=== PATIENT | female | born 1990 | race Caucasian/White ===

== ENCOUNTER 2017-01-12 17:03 | Emergency (ER) | payer SELFPAY ==
[2017-01-12 18:11] LABS: Basophils % (Auto) 0.9 % (0.0-1.8); Eosinophils % (Auto) 1.2 % (0.0-4.3); Hematocrit 40.2 % (30.3-42.9); Hemoglobin 14.1 gm/dl (10.1-14.3); Mean Corpuscular HGB Conc 35 % (30-34); Mean Corpuscular Hemoglobin 31 pg (28-32); Mean Corpuscular Volume 88 fl (79-97); Platelet Count 222 K/mm3 (140-440); Red Blood Count 4.57 M/mm3 (3.65-5.03); Red Cell Distribution Width 13.4 % (13.2-15.2)
[2017-01-12 18:16] LABS: Alanine Aminotransferase 23 units/L (7-56); Albumin/Globulin Ratio 1.2 %; Alkaline Phosphatase 42 units/L (35-129); Anion Gap 17 mmol/L; Blood Urea Nitrogen 14 mg/dL (7-17); Calcium 8.9 mg/dL (8.4-10.2); Carbon Dioxide 25 mmol/L (22-30); Chloride 102.4 mmol/L (98-107); Glucose 103 mg/dL (65-100); Lipase 67 units/L (13-60); Potassium 4.7 mmol/L (3.6-5.0); Sodium 140 mmol/L (137-145); Total Protein 7.4 g/dL (6.3-8.2)
[2017-01-12] MEDS ORDERED: ZOFRAN IV ONE (18:41)
[2017-01-12] MEDS ORDERED: TORADOL IV ONE (18:41)
[2017-01-12] MEDS ORDERED: NACL 0.9% 1000 ML 1,000 ML IV ONE (18:41)
[2017-01-12 18:44] LABS: Bilirubin,Urine Negative (Negative); Blood,Urine Negative (Negative); Ketones,Urine Negative (Negative); PH,Urine 6.5 (5.0-7.0)
[2017-01-12 18:45] LABS: Leukocyte Esterase,Urine Negative (Negative); Nitrite,Urine Negative (Negative); Protein,Urine <15 mg/dL mg/dL (Negative); Urobilinogen,Urine < 2.0 mg/dL (<2.0)
[2017-01-12] MEDS ORDERED: NACL ONE (19:08)
--- NOTE | 2017-01-12 20:19 | Cat Scan Report ---
FINAL REPORT EXAM: CT ABDOMEN PELVIS W CON HISTORY: RLQ pain TECHNIQUE: Serial axial images through the abdomen and pelvis with coronal and sagittal reconstruction. Intravenous administration of 100 milliliters Omnipaque 300 contrast PRIORS: None. FINDINGS: There is mild atelectasis in the dependent portion the lung bases. No pleural effusion is seen. Gallbladder is decompressed. The spleen measures 13.9 centimeters in AP dimension. No focal hepatic lesion is identified. Pancreas appears normal. Adrenal glands appear normal. Kidneys appear normal. Aorta is normal in caliber. Bladder appears normal. No gross abnormality is seen in the uterus. Surgical clips are noted in the adnexa. No free fluid. Appendix appears normal. No gross bowel abnormality is identified. No acute osseous abnormality is identified. IMPRESSION: 1. Normal-appearing appendix. 2. No free fluid or inflammatory changes are seen in the abdomen or pelvis. 3. Mild splenomegaly.
--- NOTE | 2017-01-12 21:00 | Emergency Department Report ---
Entered by PRINCESS SEBASTIAN, acting as scribe for JAMI PIZANO NP. ED Abdominal Pain HPI - General Chief Complaint: Abdominal Pain Stated Complaint: LOWER ABD PAIN Time Seen by Provider: 01/12/17 18:14 Source: patient Mode of arrival: Ambulatory Limitations: No Limitations - History of Present Illness Initial Comments: 26 y/o female presents to the ED c/o abdominal pain x 2 days. Associated symptoms include nausea and dizziness but she denies fever, chills and vomiting. Pain is described as 10/10 on a severity scale. No alleviating or aggravating factors. NKDA. LMP: 12/31/16. Complaint: abdominal pain Onset/Timin -: days(s) Location: RUQ Radiation: none Migration to: no migration Severity: severe Severity scale (0 -10): 8 Quality: sharp Consistency: constant Improves With: nothing Worsens With: nothing Associated Symptoms: nausea, other (dizziness). denies: vomiting, fever, chills - Related Data LMP Date: 12/31/16 Previous Rx's Medication Instructions Recorded Last Taken Type Dicyclomine [Bentyl] 10 mg PO QID #30 capsule 01/12/17 Unknown Rx Ranitidine HCl [Zantac 150 MG TAB] 150 mg PO BID #60 tablet 01/12/17 Unknown Rx Allergies Allergy/AdvReac Type Severity Reaction Status Date / Time No Known Allergies Allergy Verified 01/12/17 17:28 ED Review of Systems Comment: All other systems reviewed and negative Constitutional: denies: chills, fever Eyes: denies: eye pain, eye discharge, vision change ENT: denies: ear pain, throat pain Respiratory: denies: cough, shortness of breath, wheezing Cardiovascular: denies: chest pain, palpitations Endocrine: no symptoms reported Gastrointestinal: abdominal pain, nausea. denies: vomiting, diarrhea, constipation, hematemesis, melena, hematochezia Genitourinary: denies: urgency, dysuria, frequency, hematuria, discharge, abnormal menses, dyspareunia Musculoskeletal: denies: back pain, joint swelling, arthralgia Skin: denies: rash, lesions Neurological: other (dizziness) Psychiatric: denies: anxiety, depression Hematological/Lymphatic: denies: easy bleeding, easy bruising ED Past Medical Hx - Past Medical History Previous Medical History?: No Hx Hypertension: No Hx Diabetes: No Hx Deep Vein Thrombosis: No Hx Renal Disease: No Hx Sickle Cell Disease: No Hx Seizures: No Hx Asthma: No Hx HIV: No - Surgical History Past Surgical History?: No - Social History Smoking Status: Never Smoker Substance Use Type: None - Medications Home Medications: Home Medications Medication Instructions Recorded Confirmed Last Taken Type Dicyclomine [Bentyl] 10 mg PO QID #30 capsule 01/12/17 Unknown Rx Ranitidine HCl [Zantac 150 MG TAB] 150 mg PO BID #60 tablet 01/12/17 Unknown Rx ED Physical Exam - General Limitations: No Limitations General appearance: alert, in no apparent distress, anxious, obese - Head Head exam: Present: atraumatic, normocephalic, normal inspection - Eye Eye exam: Present: normal appearance, PERRL, EOMI Pupils: Present: normal accommodation - ENT ENT exam: Present: normal exam, normal orophraynx, mucous membranes moist, TM's normal bilaterally, normal external ear exam - Neck Neck exam: Present: normal inspection, full ROM. Absent: tenderness, meningismus, lymphadenopathy, thyromegaly - Respiratory Respiratory exam: Present: normal lung sounds bilaterally. Absent: respiratory distress, wheezes, rales, rhonchi, chest wall tenderness, accessory muscle use, decreased breath sounds - Cardiovascular Cardiovascular Exam: Present: regular rate, normal rhythm, normal heart sounds. Absent: bradycardia, tachycardia, irregular rhythm, systolic murmur, diastolic murmur, rubs, gallop - GI/Abdominal GI/Abdominal exam: Present: soft, tenderness (right upper quadrant, pos hong sign ), normal bowel sounds. Absent: guarding, rebound, rigid, organomegaly, mass, bruit, pulsatile mass, hernia - Rectal Rectal exam: Present: deferred - Extremities Exam Extremities exam: Present: normal inspection, full ROM, normal capillary refill. Absent: tenderness, pedal edema, joint swelling, calf tenderness - Back Exam Back exam: Present: normal inspection, full ROM. Absent: tenderness, CVA tenderness (R), CVA tenderness (L), muscle spasm, paraspinal tenderness, vertebral tenderness, rash noted - Neurological Exam Neurological exam: Present: alert, oriented X3 - Psychiatric Psychiatric exam: Present: normal affect, normal mood - Skin Skin exam: Present: warm, dry, intact, normal color. Absent: rash ED Course Vital Signs 01/12/17 01/12/17 17:29 18:56 Temperature 98.6 F Pulse Rate 69 Respiratory 18 16 Rate O2 Sat by Pulse 100 Oximetry ED Medical Decision Making - Lab Data Result diagrams: 01/12/17 17:42 01/12/17 17:42 Laboratory Tests 01/12/17 01/12/17 01/12/17 17:42 17:42 17:42 WBC 10.0 RBC 4.57 Hgb 14.1 Hct 40.2 MCV 88 MCH 31 MCHC 35 H RDW 13.4 Plt Count 222 Lymph % (Auto) 26.3 [place] % (Auto) 5.1 Eos % (Auto) 1.2 Baso % (Auto) 0.9 Lymph # 2.6 [place] # 0.5 Eos # 0.1 Baso # 0.1 Seg Neutrophils % 66.5 Seg Neutrophils # 6.6 Sodium 140 Potassium 4.7 Chloride 102.4 Carbon Dioxide 25 Anion Gap 17 BUN 14 Creatinine 1.0 Estimated GFR > 60 BUN/Creatinine Ratio 14.00 Glucose 103 H Calcium 8.9 Total Bilirubin 0.70 AST 21 ALT 23 Alkaline Phosphatase 42 Total Protein 7.4 Albumin 4.0 Albumin/Globulin Ratio 1.2 Lipase 67 H HCG, Qual Negative Urine Color Urine Turbidity Urine pH Ur Specific [place] Urine Protein Urine Glucose (UA) Urine Ketones Urine Blood Urine Nitrite Urine Bilirubin Urine Urobilinogen Ur Leukocyte Esterase Urine WBC (Auto) Urine RBC (Auto) 01/12/17 17:57 WBC RBC Hgb Hct MCV MCH MCHC RDW Plt Count Lymph % (Auto) [place] % (Auto) Eos % (Auto) Baso % (Auto) Lymph # [place] # Eos # Baso # Seg Neutrophils % Seg Neutrophils # Sodium Potassium Chloride Carbon Dioxide Anion Gap BUN Creatinine Estimated GFR BUN/Creatinine Ratio Glucose Calcium Total Bilirubin AST ALT Alkaline Phosphatase Total Protein Albumin Albumin/Globulin Ratio Lipase HCG, Qual Urine Color Yellow Urine Turbidity Clear Urine pH 6.5 Ur Specific [place] 1.015 Urine Protein <15 mg/dl Urine Glucose (UA) Negative Urine Ketones Negative Urine Blood Negative Urine Nitrite Negative Urine Bilirubin Negative Urine Urobilinogen < 2.0 Ur Leukocyte Esterase Negative Urine WBC (Auto) 0.0 Urine RBC (Auto) 0.0 - Radiology Data Radiology results: report reviewed no acute findings on ct abd and pelvis - Medical Decision Making pt is a 26 y/o female patient who presents for right upper quadrant pain for 1 week symptoms pressure aching sharp shoot, pt denies vomiting does endorse intermittent nausea, pt is tolerating po intake without n/v labs noted normal, ct abd and pelvis normal plan dc to self with bentyl, zantac, pt will follow up with primary care doctor as directed. ED Disposition Clinical Impression: Abdominal pain Qualifiers: Abdominal location: right upper quadrant Qualified Code(s): R10.11 - Right upper quadrant pain Disposition: DC-01 TO HOME OR SELFCARE Is pt being admited?: No Does the pt Need Aspirin: No Condition: Good Instructions: Abdominal Pain (ED) Additional Instructions: follow up with [facility] [phone] Prescriptions: Dicyclomine [Bentyl] 10 mg PO QID #30 capsule Ranitidine HCl [Zantac 150 MG TAB] 150 mg PO BID #60 tablet Referrals: PRIMARY CARE, [Primary Care Provider] - 3-5 Days Forms: Work/School Release Form(ED) Time of Disposition: 20:58 This documentation as recorded by the JAZ miller ELIZABETH,accurately reflects the service I personally performed and the decisions made by me, JAMI PIZANO NP.
== END 2017-01-12 21:00 | disposition home or self-care (01) ==
LOC: ED 17:03
DX: R10.11 Right upper quadrant pain (principal)
CPT/HCPCS: 36415; 74177; 80053; 81001; 83690; 84703; 85025; 96361; 96374; 96375; 99284; J1885; J2405; J7030; Q9967

== ENCOUNTER 2020-09-17 19:44 | Inpatient (IN) | payer OTHER, SELFPAY ==
[2020-09-17] MEDS ORDERED: SODIUM CHLORIDE 0.9% 1000 ML 1,000 ML IV ONE (20:48)
[2020-09-17] MEDS ORDERED: ACETAMINOPHEN 500 MG TAB PO ONE ×2 (20:48→23:55)
--- NOTE | 2020-09-17 20:51 | Event Note ---
ED Screening Note Date of service: 09/17/20 Time: 20:49 ED Screening Note: 29-year-old female patient presents emergency department with complaints of progressively worsening dyspnea since she was diagnosed with COVID-19 earlier this week. She has been taking Robitussin and aspirin with limited relief. General: Awake, appropriately interactive, no acute distress. Neck: Supple. Full range of motion intact. Cardiovascular: Normal peripheral perfusion. Pulmonary: No respiratory distress. Patient is speaking normally without use of accessory muscles. Skin: No apparent rashes or lesions. Neurological: No facial asymmetry. Speech is clear. Follows commands. Patient is alert and oriented. Musculoskeletal: Moves all four extremities spontaneously with normal range of motion. Psych: Cooperative. Appropriate mood and affect. Patient noted to be febrile and tachycardic on arrival; IV fluids and lactic acid ordered per sepsis protocol. This initial assessment/diagnostic orders/clinical plan/treatment(s) is/are subject to change based on patients health status, clinical progression and re- assessment by fellow clinical providers in the ED. Further treatment and workup at subsequent clinical providers discretion. Patient/guardian urged not to elope from the ED as their condition may be serious if not clinically assessed and managed.
--- NOTE | 2020-09-17 21:06 | XRay Report ---
CHEST 2 VIEWS INDICATION / CLINICAL INFORMATION: SOB; (+) COVID. COMPARISON: None available. FINDINGS: SUPPORT DEVICES: None. HEART / MEDIASTINUM: No significant abnormality. LUNGS / PLEURA: Diffuse bilateral pulmonary opacities No pneumothorax. ADDITIONAL FINDINGS: No significant additional findings. IMPRESSION: 1. Diffuse bilateral pulmonary infiltrates. Signer Name: Martinez Mathur MD Signed: 09/17/2020 9:02 PM Workstation Name: [id number]
[2020-09-17 21:09] LABS: Mean Corpuscular HGB Conc 34 % (30-34); Mean Corpuscular Volume 90 fl (79-97); Platelet Count 174 K/mm3 (140-440); Red Blood Count 4.58 M/mm3 (3.65-5.03); Red Cell Distribution Width 13.6 % (13.2-15.2)
[2020-09-17 21:26] LABS: Alanine Aminotransferase 16 units/L (7-56); Albumin 3.7 g/dL (3.9-5); BUN/Creatinine Ratio 7; Blood Urea Nitrogen 5 mg/dL (7-17); Calcium 8.6 mg/dL (8.4-10.2); Hemolysis Index 21
[2020-09-17 22:39] LABS: Band Neutrophils # (Manual) 0.6 K/mm3; Ovalocytes Rare; Tear Drop Cells Rare; Total Cells Counted 100
[2020-09-17 22:40] LABS: Large Platelets Rare; Platelet Estimate Consistent w Auto
--- NOTE | 2020-09-17 23:32 | Emergency Department Report ---
ED Shortness of Breath HPI - General Chief Complaint: Dyspnea/Respdistress Stated Complaint: CESILIA Time Seen by Provider: 09/17/20 23:12 Source: patient Mode of arrival: Ambulatory Limitations: No Limitations - History of Present Illness Initial Comments: Patient is a 29-year-old female who presents emergency room with complaints of cough, fever, shortness of breath, difficulty breathing, body aches. Patient states her fever is high at home. Patient states she was tested on Sunday for COVID-19. And states that she got her test back this morning is positive. Patient states that her symptoms are worsening. Patient states that her symptoms are better with rest and worse with exertion and movement. Patient states that she has been taking Tylenol for her symptoms and has some relief. Patient denies chest pain. Patient states she has not had a COVID-19 vaccine. Patient states she has not been given any antibiotics lately. MD Complaint: shortness of breath, cough -: Sudden Severity: severe Consistency: constant Improves With: rest Worsens With: exertion Known History Of: other Context: recent URI Associated Symptoms: fever, cough Treatments Prior to Arrival: none - Related Data Home Oxygen Therapy: No Previous Rx's Medication Instructions Recorded Last Taken Type Dicyclomine [Bentyl] 10 mg PO QID #30 capsule 01/12/17 Unknown Rx raNITIdine HCl [Zantac 150 MG TAB] 150 mg PO BID #60 tablet 01/12/17 Unknown Rx Allergies Allergy/AdvReac Type Severity Reaction Status Date / Time No Known Allergies Allergy Verified 01/12/17 17:28 ED Review of Systems ROS: Stated complaint: CESILIA Other details as noted in HPI Constitutional: see HPI, chills, fever, malaise Eyes: denies: eye pain, eye discharge, vision change ENT: as per HPI. denies: ear pain, throat pain Respiratory: see HPI, cough, shortness of breath, SOB with exertion, SOB at rest. denies: wheezing Cardiovascular: denies: chest pain, palpitations Endocrine: no symptoms reported Gastrointestinal: denies: abdominal pain, nausea, diarrhea Genitourinary: denies: urgency, dysuria, discharge Musculoskeletal: denies: back pain, joint swelling, arthralgia Skin: denies: rash, lesions Neurological: denies: headache, weakness, paresthesias Psychiatric: denies: anxiety, depression Hematological/Lymphatic: denies: easy bleeding, easy bruising ED Past Medical Hx - Past Medical History Previous Medical History?: Yes Hx Hypertension: Yes Hx Diabetes: No Hx Deep Vein Thrombosis: No Hx Renal Disease: No Hx Sickle Cell Disease: No Hx Seizures: No Hx Asthma: No Hx HIV: No Additional medical history: Pneumonia - Surgical History Past Surgical History?: Yes Additional Surgical History: X 2 - Family History Family history: no significant - Social History Smoking Status: Never Smoker Substance Use Type: None - Medications Home Medications: Home Medications Medication Instructions Recorded Confirmed Last Taken Type Dicyclomine [Bentyl] 10 mg PO QID #30 capsule 01/12/17 Unknown Rx raNITIdine HCl [Zantac 150 MG TAB] 150 mg PO BID #60 tablet 01/12/17 Unknown Rx ED Physical Exam - General Limitations: No Limitations General appearance: alert, in distress - Head Head exam: Present: atraumatic, normocephalic - Eye Eye exam: Present: normal appearance - ENT ENT exam: Present: mucous membranes dry - Neck Neck exam: Present: normal inspection - Respiratory Respiratory exam: Present: respiratory distress, decreased breath sounds - Cardiovascular Cardiovascular Exam: Present: regular rate, normal rhythm. Absent: systolic murmur, diastolic murmur, rubs, gallop - GI/Abdominal GI/Abdominal exam: Present: soft, normal bowel sounds. Absent: distended, tenderness - Rectal Rectal exam: Present: deferred - Extremities Exam Extremities exam: Present: normal inspection - Back Exam Back exam: Present: normal inspection - Neurological Exam Neurological exam: Present: alert, oriented X3 - Psychiatric Psychiatric exam: Present: normal affect, normal mood - Skin Skin exam: Present: warm, dry, intact, normal color. Absent: rash ED Course Vital Signs 09/17/20 20:27 Temperature 102.9 F H Pulse Rate 114 H Respiratory 18 Rate Blood Pressure 151/96 O2 Sat by Pulse 94 Oximetry - Reevaluation(s) Reevaluation #1: Initial valuation done. Patient found to have a resting oxygen saturation of 84%. Patient's oxygen saturation dropped to 79% with minimal movement. Patient placed on oxygen. Patient placed on 3 L of oxygen via nasal cannula. 09/17/20 23:25 Reevaluation #2: Patient oxygen has improved. Patient on front desk monitor. 09/17/20 23:36 Reevaluation #3: I discussed all results with patient. I discussed plan of care with patient. Patient agrees with plan of care and admission. Patient to be admitted to the hospitalist service. 09/17/20 23:45 - Consultations Consultation #1: Hospitalist consulted for admission. Hospitalist to admit patient. 09/17/20 23:48 ED Medical Decision Making - Lab Data Result diagrams: 09/17/20 20:50 09/17/20 20:50 - Radiology Data Radiology results: report reviewed, image reviewed interpreted by me: Chest x-ray: Bilateral pneumonia. No pneumothorax, no foreign body, no osseous findings, CHEST 2 VIEWS INDICATION / CLINICAL INFORMATION: SOB; (+) COVID. COMPARISON: None available. FINDINGS: SUPPORT DEVICES: None. HEART / MEDIASTINUM: No significant abnormality. LUNGS / PLEURA: Diffuse bilateral pulmonary opacities No pneumothorax. ADDITIONAL FINDINGS: No significant additional findings. IMPRESSION: 1. Diffuse bilateral pulmonary infiltrates. - Medical Decision Making Patient is a 29-year-old female that presents emergency room with complaints of fever, cough, difficulty breathing, shortness of breath, body aches and positive for COVID-19. Patient had a PCR done 5 days ago and got the results back this morning was positive. Patient states her symptoms are worsening. Patient on h is evaluation was found to be severely hypoxic at 84% resting and 79% with activity. Patient was immediately placed on 3 L of oxygen via nasal cannula. Patient had a chest x-ray done which shows bilateral pneumonia. I personally reviewed the chest x-ray. Patient's labs were done and are essentially unremarkable. Patient admitted to the hospital service for further evaluation treatment. Prior to admission, the patient was given Rocephin, Zithromax and Decadron. Critical care time documented due to the multiple reassessments, prolonged time at the bedside, interpretation of diagnostics and labs. - Differential Diagnosis Fever, Covid, URI, pneumonia, hypoxia, respiratory failure Critical Care Time: Yes Critical care time in (mins) excluding proc time.: 35 Critical care attestation.: If time is entered above; I have spent that time in minutes in the direct care of this critically ill patient, excluding procedure time. Critical Care Time: 35 minutes ED Disposition Clinical Impression: Cough, COVID-19, SOB (shortness of breath) Respiratory failure Qualifiers: Chronicity: acute Respiratory failure complication: hypoxia Qualified Code(s): J96.01 - Acute respiratory failure with hypoxia Pneumonia Qualifiers: Pneumonia type: due to unspecified organism Laterality: bilateral Lung location: unspecified part of lung Qualified Code(s): J18.9 - Pneumonia, unspecified organism Disposition: DC-09 OP ADMIT IP TO THIS HOSP Is pt being admited?: Yes Does the pt Need Aspirin: No Condition: Critical Instructions: Bacterial Pneumonia (ED) Time of Disposition: 23:50
[2020-09-17] MEDS ORDERED: cefTRIAXone/NS 2 GM/100 ML 2 GM/100 ML BAG IV ONE (23:33)
[2020-09-17] MEDS ORDERED: dexAMETHasone 4 MG/ML VIAL IV ONE (23:33)
[2020-09-17] MEDS ORDERED: ACETAMINOPHEN 325 MG TAB PO PRN (23:55)
[2020-09-17] MEDS ORDERED: METOCLOPRAMIDE 10 MG/2 ML INJ IV PRN (23:55)
[2020-09-17] MEDS ORDERED: MAGNESIUM HYDROXIDE (MOM) ORAL LIQD UDC PO PRN (23:55)
[2020-09-17] MEDS ORDERED: ONDANSETRON 4 MG/2 ML INJ IV PRN (23:55)
[2020-09-17] MEDS ORDERED: ALUM-MAG HYDROXIDE-SIMETHICONE 200-200-20MG/5ML ORAL LIQD 30 ML PO PRN (23:55)
[2020-09-17] MEDS ORDERED: SENNOSIDES 8.6 MG TAB PO PRN (23:55)
[2020-09-17] MEDS ORDERED: traMADol 50 MG TAB PO PRN (23:59)
[2020-09-17] MEDS ORDERED: traZODone 50 MG TAB PO PRN (23:59)
[2020-09-18] MEDS ORDERED: hydrALAZINE 20 MG/1 ML INJ IV PRN (00:01)
--- NOTE | 2020-09-18 00:06 | History and Physical Report ---
History of Present Illness Date of examination: 08/17/20 Date of admission: 09/17/20 23:38 Chief complaint: Shortness of breath Acute respiratory failure Covid positive History of present illness: Patient is a 29-year-old female who presents emergency room with complaints of cough, fever, shortness of breath, difficulty breathing, body aches. Patient states her fever is high at home. Patient states she was tested on Sunday for COVID-19. And states that she got her test back this morning is positive. Patient states that her symptoms are worsening. Patient states that her symptoms are better with rest and worse with exertion and movement. Patient states that she has been taking Tylenol for her symptoms and has some relief. Patient denies chest pain. Patient states she has not had a COVID-19 vaccine. Patient states she has not been given any antibiotics lately. Ed work up shows WBC 4.7, hemoglobin 14.0, PLT 174, Sodium 136, potassium 4.0, Cr 0.7, LD 521, C reactive Protein 3.50, D-dimer 200.41 Patient seen at bedside in ED. Patient alert and oriented times 3. Patient in an oxygen at 5 liters. Past History Past Medical History: hypertension Past Surgical History: No surgical history Social history: no significant social history Family history: no significant family history Medications and Allergies Allergies Allergy/AdvReac Type Severity Reaction Status Date / Time No Known Allergies Allergy Verified 01/12/17 17:28 Home Medications Medication Instructions Recorded Confirmed Last Taken Type Dicyclomine [Bentyl] 10 mg PO QID #30 capsule 01/12/17 Unknown Rx raNITIdine HCl [Zantac 150 MG TAB] 150 mg PO BID #60 tablet 01/12/17 Unknown Rx Active Meds: Active Medications Acetaminophen (Acetaminophen 325 Mg Tab) 650 mg PO Q4H PRN PRN Reason: Pain MILD(1-3)/Fever >100.5/[place] Al Hydrox/Mg Hydrox/Simethicone (Alum-Mag Hydroxide-Simethicone [phone]/5ml Oral Liqd 30 Ml) 30 ml PO Q4H PRN PRN Reason: Indigestion Enoxaparin Sodium (Enoxaparin 60 Mg/0.6 Ml Inj) 40 mg SUB-Q QDAY SHELLY; Protocol Hydralazine HCl (Hydralazine 20 Mg/1 Ml Inj) 5 mg IV Q4HR PRN PRN Reason: Hypertension Azithromycin (Zithromax/Ns) 500 mg in 250 mls @ 250 mls/hr IV Q24HR SHELLY Sodium Chloride (Nacl 0.9% 1000 Ml) 1,000 mls @ 75 mls/hr IV DIRECT SHELLY Magnesium Hydroxide (Magnesium Hydroxide (Mom) Oral Liqd Udc) 30 ml PO Q4H PRN PRN Reason: Constipation Metoclopramide HCl (Metoclopramide 10 Mg/2 Ml Inj) 10 mg IV Q6H PRN PRN Reason: Nausea And Vomiting Ondansetron HCl (Ondansetron 4 Mg/2 Ml Inj) 4 mg IV Q8H PRN PRN Reason: Nausea And Vomiting Senna (Sennosides 8.6 Mg Tab) 8.6 mg PO Q12HR PRN PRN Reason: Constipation Tramadol HCl (Tramadol 50 Mg Tab) 50 mg PO Q4H PRN PRN Reason: Pain, Moderate (4-6) Trazodone HCl (Trazodone 50 Mg Tab) 50 mg PO QHS PRN PRN Reason: Insomnia Review of Systems Constitutional: fatigue, weakness, malaise Ears, nose, mouth and throat: no epistaxis Breasts: no pain Respiratory: no congestion Gastrointestinal: no abdominal pain, no melena Rectal: no pain Musculoskeletal: no neck stiffness Integumentary: no rash, no pruritis Neurological: weakness, no paralysis Psychiatric: no disorientation, no hallucinations Hematologic/Lymphatic: no easy bruising, no easy bleeding Allergic/Immunologic: no urticaria Exam - Constitutional Vitals: Temp Pulse Resp BP Pulse Ox 102.9 F H 114 H 18 151/96 94 09/17/20 20:27 09/17/20 20:27 09/17/20 20:27 09/17/20 20:27 09/17/20 20:27 General appearance: Present: mild distress, obese - EENT Eyes: Present: PERRL ENT: hearing intact, clear oral mucosa - Neck Neck: Present: supple, normal ROM - Respiratory Respiratory effort: normal Respiratory: bilateral: CTA - Cardiovascular Heart rate: 114 Heart Sounds: Present: S1 & S2. Absent: rub, click - Extremities Extremities: pulses symmetrical, No edema Peripheral Pulses: within normal limits - Abdominal General gastrointestinal: Present: soft, non-tender, non-distended, normal bowel sounds Female genitourinary: Present: normal - Integumentary Integumentary: Present: clear, warm, dry - Musculoskeletal Musculoskeletal: gait normal, strength equal bilaterally - Psychiatric Psychiatric: appropriate mood/affect, intact judgment & insight, cooperative - Neurologic Neurologic: CNII-XII intact, moves all extremities - Allied Health Allied health notes reviewed: nursing Results - Labs CBC & Chem 7: 09/17/20 20:50 09/18/20 00:41 Labs: Abnormal lab results 09/17/20 Range/Units 20:50 Sodium 136 L (137-145) mmol/L BUN 5 L (7-17) mg/dL Albumin 3.7 L (3.9-5) g/dL Assessment and Plan - Patient Problems (1) COVID-19 Current Visit: Yes Status: Acute Plan to address problem: Monitor inflammatory markers Oxygen supplement and systemic steroid ID consulted. We will start the antibiotic with azithromycin Encourage prone position and use of I-S Monitor ABG (2) Respiratory failure Current Visit: Yes Status: Acute Qualifiers: Chronicity: acute Respiratory failure complication: hypoxia Qualified Code(s): J96.01 - Acute respiratory failure with hypoxia Plan to address problem: Acute respiratory failure with hypoxia Patient is on oxygen per nasal cannula I will monitor ABG Patient is started on antibiotic (3) Pneumonia Current Visit: Yes Status: Acute Qualifiers: Pneumonia type: due to unspecified organism Laterality: bilateral Lung location: unspecified part of lung Qualified Code(s): J18.9 - Pneumonia, unspecified organism Plan to address problem: Checks x-ray shows bilateral lung infiltrate. Likely secondary to Covid virus Patient is on antibiotic Blood culture follow-up with results (4) Fever Current Visit: Yes Status: Acute Plan to address problem: Monitor vital signs Fever likely secondary to Covid infection Tylenol for fever (5) DVT prophylaxis Current Visit: Yes Status: Acute Plan to address problem: Subcutaneous Lovenox
[2020-09-18] MEDS: AZITHROMYCIN/NS 500 MG/250 ML 500 MG/250 ML BAG IV SCH ×2 (00:48→09:54)
[2020-09-18] MEDS: SODIUM CHLORIDE 0.9% 1000 ML 1,000 ML IV SCH ×2 (01:35→15:00)
[2020-09-18 02:30] LABS: C-Reactive Protein 3.5 mg/dL (0.00-1.30)
[2020-09-18] MEDS: cefTRIAXone/NS 1 GM/50 ML 1 GM/50 ML BAG IV SCH (06:18)
--- NOTE | 2020-09-18 07:31 | Progress Note ---
Assessment and Plan Assessment and plan: Patient is a 29-year-old female who presents emergency room with complaints of cough, fever, shortness of breath, difficulty breathing, body aches. Patient states her fever is high at home. Patient states she was tested on Sunday for COVID-19. And states that she got her test back this morning is positive. Patient states that her symptoms are worsening. Patient states that her symptoms are better with rest and worse with exertion and movement. Patient states that she has been taking Tylenol for her symptoms and has some relief. Patient denies chest pain. Patient states she has not had a COVID-19 vaccine. Patient states she has not been given any antibiotics lately. Ed work up shows WBC 4.7, hemoglobin 14.0, PLT 174, Sodium 136, potassium 4.0, Cr 0.7, LD 521, C reactive Protein 3.50, D-dimer 200.41 Patient seen at bedside in ED. Patient alert and oriented times 3. Patient in an oxygen at 5 liters. IMPRESSION: 1. Diffuse bilateral pulmonary infiltrates. 4/3: Check Oxygen level. Obtain Pulmonary eval as patient admitted on 5 LITERS of Oxygen. Cough medication added. Encourage prone positioning. 50 minutes counseling provided to the patient on weight loss. (1) COVID-19 Current Visit: Yes Status: Acute Plan to address problem: Monitor inflammatory markers Oxygen supplement and systemic steroid ID consulted. We will start the antibiotic with azithromycin Encourage prone position and use of I-S Monitor ABG (2) Respiratory failure Current Visit: Yes Status: Acute Qualifiers: Chronicity: acute Respiratory failure complication: hypoxia Qualified Code(s): J96.01 - Acute respiratory failure with hypoxia Plan to address problem: Acute respiratory failure with hypoxia Patient is on oxygen per nasal cannula I will monitor ABG Patient is started on antibiotic (3) Pneumonia Current Visit: Yes Status: Acute Qualifiers: Pneumonia type: due to unspecified organism Laterality: bilateral Lung location: unspecified part of lung Qualified Code(s): J18.9 - Pneumonia, unspecified organism Plan to address problem: Checks x-ray shows bilateral lung infiltrate. Likely secondary to Covid virus Patient is on antibiotic Blood culture follow-up with results (4) Fever Current Visit: Yes Status: Acute Plan to address problem: Monitor vital signs Fever likely secondary to Covid infection Tylenol for fever (5) morbid obesity BMI of 40.7 [6] DVT prophylaxis Current Visit: Yes Status: Acute Plan to address problem: Subcutaneous Lovenox History Interval history: Patient seen and examined still with mild shortness of breath. Reports cough but no chest pain. Currently on 4 L of oxygen Hospitalist Physical - Physical exam Narrative exam: VITAL SIGNS: Reviewed. GENERAL: The patient appears normally developed, mild distress, morbidly obese vital signs as documented. HEAD: No signs of head trauma. EYES: Pupils are equal. Extraocular motions intact. EARS: Hearing grossly intact. MOUTH: Oropharynx is normal. NECK: No adenopathy, no JVD. CHEST: Chest with diminished breath sounds bilaterally. No wheezes, rales, or rhonchi. CARDIAC: Regular rate and rhythm. S1 and S2, without murmurs, gallops, or rubs. VASCULAR: No Edema. Peripheral pulses normal and equal in all extremities. ABDOMEN: Soft, non tender and non distended. No rebound or guarding, and no masses palpated. Bowel Sounds normal. MUSCULOSKELETAL: Good range of motion of all major joints. Extremities without clubbing, cyanosis or edema. NEUROLOGIC EXAM: Alert and oriented x 3 No focal sensory or strength deficits. Speech normal. Follows commands. PSYCHIATRIC: Mood normal. SKIN: detail exam as documented in skin assessment - Constitutional Vitals: Temp Pulse Resp BP Pulse Ox 98.5 F 81 18 109/73 97 09/18/20 05:02 09/18/20 05:02 09/18/20 05:02 09/18/20 05:02 09/18/20 05:02 General appearance: Present: mild distress, obese Results - Labs CBC & Chem 7: 09/17/20 20:50 09/18/20 00:41 Labs: Laboratory Last Values WBC 4.7 K/mm3 (4.5-11.0) 09/17/20 20:50 RBC 4.58 M/mm3 (3.65-5.03) 09/17/20 20:50 Hgb 14.0 gm/dl (10.1-14.3) 09/17/20 20:50 Hct 41.0 % (30.3-42.9) 09/17/20 20:50 MCV 90 fl (79-97) 09/17/20 20:50 MCH 31 pg (28-32) 09/17/20 20:50 MCHC 34 % (30-34) 09/17/20 20:50 RDW 13.6 % (13.2-15.2) 09/17/20 20:50 Plt Count 174 K/mm3 (140-440) 09/17/20 20:50 Add Manual Diff Complete 09/17/20 20:50 Total Counted 100 09/17/20 20:50 Seg Neuts % (Manual) 51.0 % (40.0-70.0) 09/17/20 20:50 Band Neutrophils % 12.0 % 09/17/20 20:50 Lymphocytes % (Manual) 32.0 % (13.4-35.0) 09/17/20 20:50 Monocytes % (Manual) 4.0 % (0.0-7.3) 09/17/20 20:50 Basophils % (Manual) 1.0 % (0.0-1.8) 09/17/20 20:50 Nucleated RBC % Not Reportable 09/17/20 20:50 Seg Neutrophils # Man 2.4 K/mm3 (1.8-7.7) 09/17/20 20:50 Band Neutrophils # 0.6 K/mm3 09/17/20 20:50 Lymphocytes # (Manual) 1.5 K/mm3 (1.2-5.4) 09/17/20 20:50 Abs React Lymphs (Man) 0.0 K/mm3 09/17/20 20:50 Monocytes # (Manual) 0.2 K/mm3 (0.0-0.8) 09/17/20 20:50 Eosinophils # (Manual) 0.0 K/mm3 (0.0-0.4) 09/17/20 20:50 Basophils # (Manual) 0.0 K/mm3 (0.0-0.1) 09/17/20 20:50 Metamyelocytes # 0.0 K/mm3 09/17/20 20:50 Myelocytes # 0.0 K/mm3 09/17/20 20:50 Promyelocytes # 0.0 K/mm3 09/17/20 20:50 Blast Cells # 0.0 K/mm3 09/17/20 20:50 WBC Morphology Not Reportable 09/17/20 20:50 Hypersegmented Neuts Not Reportable 09/17/20 20:50 Hyposegmented Neuts Not Reportable 09/17/20 20:50 Hypogranular Neuts Not Reportable 09/17/20 20:50 Smudge Cells Not Reportable 09/17/20 20:50 Toxic Granulation Not Reportable 09/17/20 20:50 Toxic Vacuolation Not Reportable 09/17/20 20:50 Dohle Bodies Not Reportable 09/17/20 20:50 Pelger-Huet Anomaly Not Reportable 09/17/20 20:50 Reed Rods Not Reportable 09/17/20 20:50 Platelet Estimate Consistent w auto 09/17/20 20:50 Clumped Platelets Not Reportable 09/17/20 20:50 Plt Clumps, EDTA Not Reportable 09/17/20 20:50 Large Platelets Rare 09/17/20 20:50 Giant Platelets Not Reportable 09/17/20 20:50 Platelet Satelliting Not Reportable 09/17/20 20:50 Plt Morphology Comment Not Reportable 09/17/20 20:50 RBC Morphology Not Reportable 09/17/20 20:50 Dimorphic RBCs Not Reportable 09/17/20 20:50 Polychromasia Not Reportable 09/17/20 20:50 Hypochromasia Not Reportable 09/17/20 20:50 Poikilocytosis Not Reportable 09/17/20 20:50 Anisocytosis Not Reportable 09/17/20 20:50 Microcytosis Not Reportable 09/17/20 20:50 Macrocytosis Not Reportable 09/17/20 20:50 Spherocytes Not Reportable 09/17/20 20:50 Pappenheimer Bodies Not Reportable 09/17/20 20:50 Sickle Cells Not Reportable 09/17/20 20:50 Target Cells Not Reportable 09/17/20 20:50 Tear Drop Cells Rare 09/17/20 20:50 Ovalocytes Rare 09/17/20 20:50 Helmet Cells Not Reportable 09/17/20 20:50 [place] Bodies Not Reportable 09/17/20 20:50 Hodges Rings Not Reportable 09/17/20 20:50 Magdiel Cells Not Reportable 09/17/20 20:50 Bite Cells Not Reportable 09/17/20 20:50 Crenated Cell Not Reportable 09/17/20 20:50 Elliptocytes Not Reportable 09/17/20 20:50 Acanthocytes (Spur) Not Reportable 09/17/20 20:50 Rouleaux Not Reportable 09/17/20 20:50 Hemoglobin C Crystals Not Reportable 09/17/20 20:50 Schistocytes Not Reportable 09/17/20 20:50 Malaria parasites Not Reportable 09/17/20 20:50 Waylon Bodies Not Reportable 09/17/20 20:50 Hem Pathologist Commnt No 09/17/20 20:50 D-Dimer 200.41 ng/mlDDU (0-234) 09/18/20 00:41 Sodium 136 mmol/L (137-145) L 09/17/20 20:50 Potassium 4.0 mmol/L (3.6-5.0) 09/17/20 20:50 Chloride 99.9 mmol/L (98-107) 09/17/20 20:50 Carbon Dioxide 25 mmol/L (22-30) 09/17/20 20:50 Anion Gap 15 mmol/L 09/17/20 20:50 BUN 5 mg/dL (7-17) L 09/17/20 20:50 Creatinine 0.7 mg/dL (0.6-1.2) 09/17/20 20:50 Estimated GFR > 60 ml/min 09/17/20 20:50 BUN/Creatinine Ratio 7 % 09/17/20 20:50 Glucose 85 mg/dL (65-100) 09/18/20 00:41 Hemoglobin A1c 5.3 % (4-6) 09/18/20 05:53 Lactic Acid 0.70 mmol/L (0.7-2.0) 09/18/20 00:41 Calcium 8.6 mg/dL (8.4-10.2) 09/17/20 20:50 Magnesium 2.10 mg/dL (1.7-2.3) 09/17/20 20:50 Ferritin 116.0 ng/mL (10.0-200.0) 09/18/20 00:41 Total Bilirubin 0.60 mg/dL (0.1-1.2) 09/17/20 20:50 AST 28 units/L (5-40) 09/17/20 20:50 ALT 16 units/L (7-56) 09/17/20 20:50 Alkaline Phosphatase 40 units/L (35-129) 09/17/20 20:50 Lactate Dehydrogenase 521 units/L (91-180) H 09/18/20 00:41 C-Reactive Protein 3.50 mg/dL (0.00-1.30) H 09/18/20 00:41 Total Protein 7.3 g/dL (6.3-8.2) 09/17/20 20:50 Albumin 3.7 g/dL (3.9-5) L 09/17/20 20:50 Albumin/Globulin Ratio 1.0 % 09/17/20 20:50 Microbiology: Microbiology 09/18/20 00:41 Peripheral/Venous Blood Culture - Preliminary Culture in Progress 09/18/20 00:27 Peripheral/Venous Blood Culture - Preliminary Culture in Progress García/IV: Voiding Method Toilet Active Medications - Current Medications Current Medications: Generic Name Dose Route Start Last Admin Trade Name Freq PRN Reason Stop Dose Admin Acetaminophen 650 mg 09/17/20 23:55 Acetaminophen 325 Mg Tab PO Q4H PRN Pain MILD(1-3)/Fever >100.5/[place] Al Hydrox/Mg Hydrox/Simethicone 30 ml 09/17/20 23:55 Alum-Mag Hydroxide-Simethicone 200-451-07iy/5ml Oral Liqd 30 Ml PO Q4H PRN Indigestion Dexamethasone 6 mg 09/18/20 10:00 Dexamethasone 4 Mg Tab PO DAILY SHELLY Enoxaparin Sodium 40 mg 09/18/20 10:00 Enoxaparin 40 Mg/0.4 Ml Inj SUB-Q QDAY SHELLY Protocol Hydralazine HCl 5 mg 09/18/20 00:01 Hydralazine 20 Mg/1 Ml Inj IV Q4H PRN Hypertension Azithromycin 500 mg in 250 mls @ 250 mls/hr 09/17/20 23:45 09/18/20 00:48 Zithromax/Ns IV 250 mls/hr Q24HR SHELLY Administration Sodium Chloride 1,000 mls @ 75 mls/hr 09/17/20 23:45 09/18/20 01:35 Nacl 0.9% 1000 Ml IV 75 mls/hr DIRECT SHELLY Administration Ceftriaxone Sodium 1 gm in 50 mls @ 100 mls/hr 09/18/20 06:00 09/18/20 06:18 Rocephin/Ns 1 Gm/50 Ml IV 100 mls/hr Q24H SHELLY Administration Protocol Magnesium Hydroxide 30 ml 09/17/20 23:55 Magnesium Hydroxide (Mom) Oral Liqd Udc PO Q4H PRN Constipation Metoclopramide HCl 10 mg 09/17/20 23:55 Metoclopramide 10 Mg/2 Ml Inj IV Q6H PRN Nausea And Vomiting Ondansetron HCl 4 mg 09/17/20 23:55 Ondansetron 4 Mg/2 Ml Inj IV Q8H PRN Nausea And Vomiting Senna 8.6 mg 09/17/20 23:55 Sennosides 8.6 Mg Tab PO Q12HR PRN Constipation Tramadol HCl 50 mg 09/17/20 23:59 Tramadol 50 Mg Tab PO Q4H PRN Pain, Moderate (4-6) Trazodone HCl 50 mg 09/17/20 23:59 Trazodone 50 Mg Tab PO QHS PRN Insomnia
[2020-09-18] MEDS: ENOXAPARIN 40 MG/0.4 ML INJ SUB-Q SCH (09:54)
[2020-09-18] MEDS ORDERED: DEXAMETHASONE 4 MG TAB PO SCH (10:00)
--- NOTE | 2020-09-18 12:14 | Consultation ---
History of Present Illness Consult date: 09/18/20 Reason for consult: dyspnea, cough History of present illness: Patient is a 29-year-old female who presents emergency room with complaints of cough, fever, shortness of breath, difficulty breathing, body aches. Patient states her fever is high at home. Patient states she was tested on Sunday for COVID-19. And states that she got her test back this morning is positive. Patient states that her symptoms are worsening. Patient states that her symptoms are better with rest and worse with exertion and movement. Patient states that she has been taking Tylenol for her symptoms and has some relief. Patient denies chest pain. Patient states she has not had a COVID-19 vaccine. Patient states she has not been given any antibiotics lately. Pt denied any previous respiratory disorder. Pt is a non smoker drinks occasional beer. Past History Past Medical History: hypertension Past Surgical History: No surgical history Social history: no significant social history Family history: no significant family history Medications and Allergies Allergies Allergy/AdvReac Type Severity Reaction Status Date / Time No Known Allergies Allergy Verified 01/12/17 17:28 Home Medications Medication Instructions Recorded Confirmed Last Taken Type Dicyclomine [Bentyl] 10 mg PO QID #30 capsule 01/12/17 Unknown Rx raNITIdine HCl [Zantac 150 MG TAB] 150 mg PO BID #60 tablet 01/12/17 Unknown Rx Active Meds: Active Medications Acetaminophen (Acetaminophen 325 Mg Tab) 650 mg PO Q4H PRN PRN Reason: Pain MILD(1-3)/Fever >100.5/[place] Al Hydrox/Mg Hydrox/Simethicone (Alum-Mag Hydroxide-Simethicone 208-219-44qi/5ml Oral Liqd 30 Ml) 30 ml PO Q4H PRN PRN Reason: Indigestion Dexamethasone (Dexamethasone 4 Mg Tab) 6 mg PO DAILY [facility] Last Admin: 09/18/20 09:54 Dose: 6 mg Documented by: Enoxaparin Sodium (Enoxaparin 40 Mg/0.4 Ml Inj) 40 mg SUB-Q QDAY [facility]; Protocol Last Admin: 09/18/20 09:54 Dose: 40 mg Documented by: Guaifenesin (Guaifenesin Dm 200/20 Mg Oral Liqd 10 Ml) 20 ml PO Q4H PRN PRN Reason: Cough Hydralazine HCl (Hydralazine 20 Mg/1 Ml Inj) 5 mg IV Q4H PRN PRN Reason: Hypertension Azithromycin (Zithromax/Ns) 500 mg in 250 mls @ 250 mls/hr IV Q24HR SHELLY Last Admin: 09/18/20 09:54 Dose: 250 mls/hr Documented by: Sodium Chloride (Nacl 0.9% 1000 Ml) 1,000 mls @ 75 mls/hr IV DIRECT SHELLY Last Admin: 09/18/20 01:35 Dose: 75 mls/hr Documented by: Ceftriaxone Sodium (Rocephin/Ns 1 Gm/50 Ml) 1 gm in 50 mls @ 100 mls/hr IV Q24H SHELLY; Protocol Last Admin: 09/18/20 06:18 Dose: 100 mls/hr Documented by: Magnesium Hydroxide (Magnesium Hydroxide (Mom) Oral Liqd Udc) 30 ml PO Q4H PRN PRN Reason: Constipation Metoclopramide HCl (Metoclopramide 10 Mg/2 Ml Inj) 10 mg IV Q6H PRN PRN Reason: Nausea And Vomiting Ondansetron HCl (Ondansetron 4 Mg/2 Ml Inj) 4 mg IV Q8H PRN PRN Reason: Nausea And Vomiting Senna (Sennosides 8.6 Mg Tab) 8.6 mg PO Q12HR PRN PRN Reason: Constipation Tramadol HCl (Tramadol 50 Mg Tab) 50 mg PO Q4H PRN PRN Reason: Pain, Moderate (4-6) Trazodone HCl (Trazodone 50 Mg Tab) 50 mg PO QHS PRN PRN Reason: Insomnia Review of Systems Constitutional: weight gain, fever, fatigue Respiratory: cough, shortness of breath Physical Examination Vital signs: Vital Signs Temp Pulse Resp BP Pulse Ox 102.9 F H 114 H 18 151/96 94 09/17/20 20:27 09/17/20 20:27 09/17/20 20:27 09/17/20 20:27 09/17/20 20:27 General appearance: no acute distress, other (obese) Eyes: non-icteric ENT: oropharynx moist, other (crowede oropharynx) Ascultation: Bilateral: clear, rhonchi Cardiovascular: regular rate and rhythm Gastrointestinal: normoactive bowel sounds, soft, non-tender, other (obese) Extremities: no cyanosis, no edema, pink and warm Musculoskeletal: no deformities Gait: other (not tested) normal mental status mood appropriate Results - Laboratory Findings CBC and BMP: 09/17/20 20:50 09/18/20 00:41 PT/INR, D-dimer D-Dimer 200.41 ng/mlDDU (0-234) 09/18/20 00:41 Abnormal lab findings: Abnormal Labs 09/17/20 09/18/20 20:50 00:41 Sodium 136 L BUN 5 L Lactate Dehydrogenase 521 H C-Reactive Protein 3.50 H Albumin 3.7 L - Diagnostic Findings Chest x-ray: image reviewed (Bilat infiltrates) Assessment and Plan Impression: Covid-19 infection with bilat pneumonia Acute hypoxic respiratory failure Morbid obesity HTN Recommendations: Cont. with current therapy Consider ID consult re Remdesvir
[2020-09-18] MEDS: guaiFENesin DM 200/20 MG ORAL LIQD 10 ML PO PRN ×2 (14:59→21:50)
[2020-09-19] MEDS: guaiFENesin DM 200/20 MG ORAL LIQD 10 ML PO PRN ×3 (05:24→19:37)
[2020-09-19] MEDS: cefTRIAXone/NS 1 GM/50 ML 1 GM/50 ML BAG IV SCH (05:24)
[2020-09-19] MEDS: SODIUM CHLORIDE 0.9% 1000 ML 1,000 ML IV SCH ×2 (05:25→19:37)
--- NOTE | 2020-09-19 08:54 | Progress Note ---
Assessment and Plan Assessment and plan: Patient is a 29-year-old female who presents emergency room with complaints of cough, fever, shortness of breath, difficulty breathing, body aches. Patient states her fever is high at home. Patient states she was tested on Sunday for COVID-19. And states that she got her test back this morning is positive. Patient states that her symptoms are worsening. Patient states that her symptoms are better with rest and worse with exertion and movement. Patient states that she has been taking Tylenol for her symptoms and has some relief. Patient denies chest pain. Patient states she has not had a COVID-19 vaccine. Patient states she has not been given any antibiotics lately. Ed work up shows WBC 4.7, hemoglobin 14.0, PLT 174, Sodium 136, potassium 4.0, Cr 0.7, LD 521, C reactive Protein 3.50, D-dimer 200.41 Patient seen at bedside in ED. Patient alert and oriented times 3. Patient in an oxygen at 5 liters. IMPRESSION: 1. Diffuse bilateral pulmonary infiltrates. 4/3: Check Oxygen level. Obtain Pulmonary eval as patient admitted on 5 LITERS of Oxygen. Cough medication added. Encourage prone positioning. 50 minutes counseling provided to the patient on weight loss. 4/4: Patient seen and examined remains on 5 L of oxygen still with cough. States unchanged from yesterday. Will start the patient on remdesivir due to hypoxia which is persistent at this time. Continue to monitor inflammatory markers. May discontinue antibiotics if procalcitonin is normal. ID consulted (1) COVID-19 Current Visit: Yes Status: Acute Plan to address problem: Monitor inflammatory markers Oxygen supplement and systemic steroid ID consulted. We will start the antibiotic with azithromycin Encourage prone position and use of I-S Monitor ABG (2) Respiratory failure Current Visit: Yes Status: Acute Qualifiers: Chronicity: acute Respiratory failure complication: hypoxia Qualified Code(s): J96.01 - Acute respiratory failure with hypoxia Plan to address problem: Acute respiratory failure with hypoxia Patient is on oxygen per nasal cannula I will monitor ABG Patient is started on antibiotic (3) Pneumonia Current Visit: Yes Status: Acute Qualifiers: Pneumonia type: due to unspecified organism Laterality: bilateral Lung location: unspecified part of lung Qualified Code(s): J18.9 - Pneumonia, unspecified organism Plan to address problem: Checks x-ray shows bilateral lung infiltrate. Likely secondary to Covid virus Patient is on antibiotic Blood culture follow-up with results (4) Fever Current Visit: Yes Status: Acute Plan to address problem: Monitor vital signs Fever likely secondary to Covid infection Tylenol for fever (5) morbid obesity BMI of 40.7 [6] DVT prophylaxis Current Visit: Yes Status: Acute Plan to address problem: Subcutaneous Lovenox History Interval history: Patient seen and examined still with mild shortness of breath. Reports cough persists but no chest pain. Currently on 4 L of oxygen Hospitalist Physical - Physical exam Narrative exam: VITAL SIGNS: Reviewed. GENERAL: The patient appears normally developed, mild distress, morbidly obese vital signs as documented. HEAD: No signs of head trauma. EYES: Pupils are equal. Extraocular motions intact. EARS: Hearing grossly intact. MOUTH: Oropharynx is normal. NECK: No adenopathy, no JVD. CHEST: Chest with diminished breath sounds bilaterally. No wheezes, rales, or rhonchi. CARDIAC: Regular rate and rhythm. S1 and S2, without murmurs, gallops, or rubs. VASCULAR: No Edema. Peripheral pulses normal and equal in all extremities. ABDOMEN: Soft, non tender and non distended. No rebound or guarding, and no masses palpated. Bowel Sounds normal. MUSCULOSKELETAL: Good range of motion of all major joints. Extremities without clubbing, cyanosis or edema. NEUROLOGIC EXAM: Alert and oriented x 3 No focal sensory or strength deficits. Speech normal. Follows commands. PSYCHIATRIC: Mood normal. SKIN: detail exam as documented in skin assessment - Constitutional Vitals: Temp Pulse Resp BP Pulse Ox 97.1 F L 80 18 110/78 98 09/18/20 22:12 09/18/20 22:12 09/18/20 22:12 09/18/20 22:12 09/18/20 22:12 General appearance: Present: mild distress, obese Results - Labs CBC & Chem 7: 09/19/20 07:01 09/18/20 00:41 Labs: Laboratory Last Values WBC 4.7 K/mm3 (4.5-11.0) 09/17/20 20:50 RBC 4.58 M/mm3 (3.65-5.03) 09/17/20 20:50 Hgb 14.0 gm/dl (10.1-14.3) 09/17/20 20:50 Hct 41.0 % (30.3-42.9) 09/17/20 20:50 MCV 90 fl (79-97) 09/17/20 20:50 MCH 31 pg (28-32) 09/17/20 20:50 MCHC 34 % (30-34) 09/17/20 20:50 RDW 13.6 % (13.2-15.2) 09/17/20 20:50 Plt Count 174 K/mm3 (140-440) 09/17/20 20:50 Add Manual Diff Complete 09/17/20 20:50 Total Counted 100 09/17/20 20:50 Seg Neuts % (Manual) 51.0 % (40.0-70.0) 09/17/20 20:50 Band Neutrophils % 12.0 % 09/17/20 20:50 Lymphocytes % (Manual) 32.0 % (13.4-35.0) 09/17/20 20:50 Monocytes % (Manual) 4.0 % (0.0-7.3) 09/17/20 20:50 Basophils % (Manual) 1.0 % (0.0-1.8) 09/17/20 20:50 Nucleated RBC % Not Reportable 09/17/20 20:50 Seg Neutrophils # Man 2.4 K/mm3 (1.8-7.7) 09/17/20 20:50 Band Neutrophils # 0.6 K/mm3 09/17/20 20:50 Lymphocytes # (Manual) 1.5 K/mm3 (1.2-5.4) 09/17/20 20:50 Abs React Lymphs (Man) 0.0 K/mm3 09/17/20 20:50 Monocytes # (Manual) 0.2 K/mm3 (0.0-0.8) 09/17/20 20:50 Eosinophils # (Manual) 0.0 K/mm3 (0.0-0.4) 09/17/20 20:50 Basophils # (Manual) 0.0 K/mm3 (0.0-0.1) 09/17/20 20:50 Metamyelocytes # 0.0 K/mm3 09/17/20 20:50 Myelocytes # 0.0 K/mm3 09/17/20 20:50 Promyelocytes # 0.0 K/mm3 09/17/20 20:50 Blast Cells # 0.0 K/mm3 09/17/20 20:50 WBC Morphology Not Reportable 09/17/20 20:50 Hypersegmented Neuts Not Reportable 09/17/20 20:50 Hyposegmented Neuts Not Reportable 09/17/20 20:50 Hypogranular Neuts Not Reportable 09/17/20 20:50 Smudge Cells Not Reportable 09/17/20 20:50 Toxic Granulation Not Reportable 09/17/20 20:50 Toxic Vacuolation Not Reportable 09/17/20 20:50 Dohle Bodies Not Reportable 09/17/20 20:50 Pelger-Huet Anomaly Not Reportable 09/17/20 20:50 Reed Rods Not Reportable 09/17/20 20:50 Platelet Estimate Consistent w auto 09/17/20 20:50 Clumped Platelets Not Reportable 09/17/20 20:50 Plt Clumps, EDTA Not Reportable 09/17/20 20:50 Large Platelets Rare 09/17/20 20:50 Giant Platelets Not Reportable 09/17/20 20:50 Platelet Satelliting Not Reportable 09/17/20 20:50 Plt Morphology Comment Not Reportable 09/17/20 20:50 RBC Morphology Not Reportable 09/17/20 20:50 Dimorphic RBCs Not Reportable 09/17/20 20:50 Polychromasia Not Reportable 09/17/20 20:50 Hypochromasia Not Reportable 09/17/20 20:50 Poikilocytosis Not Reportable 09/17/20 20:50 Anisocytosis Not Reportable 09/17/20 20:50 Microcytosis Not Reportable 09/17/20 20:50 Macrocytosis Not Reportable 09/17/20 20:50 Spherocytes Not Reportable 09/17/20 20:50 Pappenheimer Bodies Not Reportable 09/17/20 20:50 Sickle Cells Not Reportable 09/17/20 20:50 Target Cells Not Reportable 09/17/20 20:50 Tear Drop Cells Rare 09/17/20 20:50 Ovalocytes Rare 09/17/20 20:50 Helmet Cells Not Reportable 09/17/20 20:50 Serra-Weaver Bodies Not Reportable 09/17/20 20:50 Philpot Rings Not Reportable 09/17/20 20:50 Magdiel Cells Not Reportable 09/17/20 20:50 Bite Cells Not Reportable 09/17/20 20:50 Crenated Cell Not Reportable 09/17/20 20:50 Elliptocytes Not Reportable 09/17/20 20:50 Acanthocytes (Spur) Not Reportable 09/17/20 20:50 Rouleaux Not Reportable 09/17/20 20:50 Hemoglobin C Crystals Not Reportable 09/17/20 20:50 Schistocytes Not Reportable 09/17/20 20:50 Malaria parasites Not Reportable 09/17/20 20:50 Waylon Bodies Not Reportable 09/17/20 20:50 Hem Pathologist Commnt No 09/17/20 20:50 D-Dimer 200.41 ng/mlDDU (0-234) 09/18/20 00:41 Sodium 136 mmol/L (137-145) L 09/17/20 20:50 Potassium 4.0 mmol/L (3.6-5.0) 09/17/20 20:50 Chloride 99.9 mmol/L (98-107) 09/17/20 20:50 Carbon Dioxide 25 mmol/L (22-30) 09/17/20 20:50 Anion Gap 15 mmol/L 09/17/20 20:50 BUN 5 mg/dL (7-17) L 09/17/20 20:50 Creatinine 0.7 mg/dL (0.6-1.2) 09/17/20 20:50 Estimated GFR > 60 ml/min 09/17/20 20:50 BUN/Creatinine Ratio 7 % 09/17/20 20:50 Glucose 85 mg/dL (65-100) 09/18/20 00:41 Hemoglobin A1c 5.3 % (4-6) 09/18/20 05:53 Lactic Acid 0.70 mmol/L (0.7-2.0) 09/18/20 00:41 Calcium 8.6 mg/dL (8.4-10.2) 09/17/20 20:50 Magnesium 2.10 mg/dL (1.7-2.3) 09/17/20 20:50 Ferritin 116.0 ng/mL (10.0-200.0) 09/18/20 00:41 Total Bilirubin 0.60 mg/dL (0.1-1.2) 09/17/20 20:50 AST 28 units/L (5-40) 09/17/20 20:50 ALT 16 units/L (7-56) 09/17/20 20:50 Alkaline Phosphatase 40 units/L (35-129) 09/17/20 20:50 Lactate Dehydrogenase 521 units/L (91-180) H 09/18/20 00:41 C-Reactive Protein 3.50 mg/dL (0.00-1.30) H 09/18/20 00:41 Total Protein 7.3 g/dL (6.3-8.2) 09/17/20 20:50 Albumin 3.7 g/dL (3.9-5) L 09/17/20 20:50 Albumin/Globulin Ratio 1.0 % 09/17/20 20:50 Procalcitonin 0.06 ng/mL (<0.15) 09/18/20 00:41 Coronavirus (PCR) Positive (Negative) A 09/18/20 10:15 Microbiology: Microbiology 09/18/20 00:41 Peripheral/Venous Blood Culture - Preliminary NO GROWTH AFTER 24 HOURS 09/18/20 00:27 Peripheral/Venous Blood Culture - Preliminary NO GROWTH AFTER 24 HOURS García/IV: Voiding Method Toilet Active Medications - Current Medications Current Medications: Generic Name Dose Route Start Last Admin Trade Name Freq PRN Reason Stop Dose Admin Acetaminophen 650 mg 09/17/20 23:55 Acetaminophen 325 Mg Tab PO Q4H PRN Pain MILD(1-3)/Fever >100.5/[place] Al Hydrox/Mg Hydrox/Simethicone 30 ml 09/17/20 23:55 Alum-Mag Hydroxide-Simethicone [phone]/5ml Oral Liqd 30 Ml PO Q4H PRN Indigestion Dexamethasone 6 mg 09/18/20 10:00 09/18/20 09:54 Dexamethasone 4 Mg Tab PO 6 mg DAILY SHELLY Administration Enoxaparin Sodium 40 mg 09/18/20 10:00 09/18/20 09:54 Enoxaparin 40 Mg/0.4 Ml Inj SUB-Q 40 mg QDAY SHELLY Administration Protocol Guaifenesin 20 ml 09/18/20 10:51 09/19/20 05:24 Guaifenesin Dm 200/20 Mg Oral Liqd 10 Ml PO 20 ml Q4H PRN Administration Cough Hydralazine HCl 5 mg 09/18/20 00:01 Hydralazine 20 Mg/1 Ml Inj IV Q4H PRN Hypertension Azithromycin 500 mg in 250 mls @ 250 mls/hr 09/17/20 23:45 09/18/20 09:54 Zithromax/Ns IV 250 mls/hr Q24HR SHELLY Administration Sodium Chloride 1,000 mls @ 75 mls/hr 09/17/20 23:45 09/19/20 05:25 Nacl 0.9% 1000 Ml IV 75 mls/hr DIRECT SHELLY Administration Ceftriaxone Sodium 1 gm in 50 mls @ 100 mls/hr 09/18/20 06:00 09/19/20 05:24 Rocephin/Ns 1 Gm/50 Ml IV 100 mls/hr Q24H SHELLY Administration Protocol Magnesium Hydroxide 30 ml 09/17/20 23:55 Magnesium Hydroxide (Mom) Oral Liqd Udc PO Q4H PRN Constipation Metoclopramide HCl 10 mg 09/17/20 23:55 Metoclopramide 10 Mg/2 Ml Inj IV Q6H PRN Nausea And Vomiting Ondansetron HCl 4 mg 09/17/20 23:55 Ondansetron 4 Mg/2 Ml Inj IV Q8H PRN Nausea And Vomiting Senna 8.6 mg 09/17/20 23:55 Sennosides 8.6 Mg Tab PO Q12HR PRN Constipation Tramadol HCl 50 mg 09/17/20 23:59 Tramadol 50 Mg Tab PO Q4H PRN Pain, Moderate (4-6) Trazodone HCl 50 mg 09/17/20 23:59 Trazodone 50 Mg Tab PO QHS PRN Insomnia
[2020-09-19 09:12] LABS: Basophils % (Auto) 0.5 % (0.0-1.8); Hematocrit 39.8 % (30.3-42.9); Hemoglobin 13.4 gm/dl (10.1-14.3); Lymphocytes # (Auto) 1.3 K/mm3 (1.2-5.4); Lymphocytes % (Auto) 18.9 % (13.4-35.0); Mean Corpuscular HGB Conc 34 % (30-34); Mean Corpuscular Volume 91 fl (79-97); Monocytes # (Auto) 0.5 K/mm3 (0.0-0.8); Monocytes % (Auto) 7.6 % (0.0-7.3); Platelet Count 220 K/mm3 (140-440); Red Blood Count 4.36 M/mm3 (3.65-5.03); Red Cell Distribution Width 13.6 % (13.2-15.2)
[2020-09-19 09:51] LABS: Blood Urea Nitrogen 6 mg/dL (7-17); Calcium 8.3 mg/dL (8.4-10.2); Hemolysis Index 22
[2020-09-19 09:52] LABS: BUN/Creatinine Ratio 12
[2020-09-19] MEDS: AZITHROMYCIN/NS 500 MG/250 ML 500 MG/250 ML BAG IV SCH (11:19)
[2020-09-19] MEDS: ENOXAPARIN 40 MG/0.4 ML INJ SUB-Q SCH (11:19)
--- NOTE | 2020-09-19 11:47 | Progress Note ---
Assessment and Plan Impression: Covid-19 infection with bilat pneumonia Acute hypoxic respiratory failure Morbid obesity HTN Recommendations: Cont. with current therapy Continue with Remdesvir Subjective Date of service: 09/19/20 Interval history: No significant change. Patient on 3 L nasal cannula. Complains of cough Objective - Exam Narrative Exam: VITAL SIGNS: Reviewed. GENERAL: The patient appears normally developed, mild distress, morbidly obese vital signs as documented. HEAD: No signs of head trauma. EYES: Pupils are equal. Extraocular motions intact. EARS: Hearing grossly intact. MOUTH: Oropharynx is normal. NECK: No adenopathy, no JVD. CHEST: Chest with diminished breath sounds bilaterally. No wheezes, rales, or rhonchi. CARDIAC: Regular rate and rhythm. S1 and S2, without murmurs, gallops, or rubs. VASCULAR: No Edema. Peripheral pulses normal and equal in all extremities. ABDOMEN: Soft, non tender and non distended. No rebound or guarding, and no masses palpated. Bowel Sounds normal. MUSCULOSKELETAL: Good range of motion of all major joints. Extremities without clubbing, cyanosis or edema. NEUROLOGIC EXAM: Alert and oriented x 3 No focal sensory or strength deficits. Speech normal. Follows commands. PSYCHIATRIC: Mood normal. SKIN: detail exam as documented in skin assessment Constitutional: no acute distress, other (obese) Eyes: non-icteric ENT: oropharynx moist, other (crowede oropharynx) Ascultation: Bilateral: clear, rhonchi Cardiovascular: regular rate and rhythm Gastrointestinal: normoactive bowel sounds, soft, non-tender, other (obese) Extremities: no cyanosis, no edema, pink and warm Neurologic: normal mental status Psychiatric: mood appropriate CBC and BMP: 09/19/20 07:01 09/19/20 07:01 ABG, PT/INR, D-dimer: PT/INR, D-dimer D-Dimer 256.70 ng/mlDDU (0-234) H 09/19/20 07:01 Abnormal lab findings: Abnormal Labs 09/17/20 09/18/20 09/18/20 20:50 00:41 10:15 Wetzel % (Auto) Seg Neutrophils % D-Dimer Sodium 136 L BUN 5 L Creatinine Calcium Lactate Dehydrogenase 521 H C-Reactive Protein 3.50 H Albumin 3.7 L Coronavirus (PCR) Positive A 0409/19/20 09/19/20 07:01 07:01 07:01 Wetzel % (Auto) 7.6 H Seg Neutrophils % 73.0 H D-Dimer 256.70 H Sodium BUN 6 L Creatinine 0.5 L Calcium 8.3 L Lactate Dehydrogenase 435 H C-Reactive Protein Albumin Coronavirus (PCR)
[2020-09-19] MEDS ORDERED: REMDESIVIR 100 MG VIAL IV ONE (12:00)
[2020-09-19] MEDS ORDERED: REMDESIVIR 200 MG in SODIUM CHLORIDE 0.9% 250ML 250 ML IV ONE (12:00)
[2020-09-19] MEDS ORDERED: FUROSEMIDE 40 MG/4 ML INJ IV ONE (12:00)
[2020-09-19 16:09] LABS: Alanine Aminotransferase 17 units/L (7-56); Albumin 3.6 g/dL (3.9-5); Blood Urea Nitrogen 8 mg/dL (7-17); Calcium 8.3 mg/dL (8.4-10.2); Hemolysis Index 19
[2020-09-19 16:16] LABS: BUN/Creatinine Ratio 13
--- NOTE | 2020-09-19 16:37 | Consultation ---
History of Present Illness - Reason for Consult Consult date: 09/19/20 - History of Present Illness 29-year-old female past medical history morbid obesity presented to the hospital complaining of cough, fever, shortness of breath. She was initially being tested for Covid 5 days prior to admission, and the test came back positive on the day of admission. She notes her symptoms have worsened since onset and are much worse with exertion. Febrile on admission to 102.9 with a white count of 6.9. Procalcitonin 0.06. Covid positive. Normal renal function. Currently on ceftriaxone and mayo thromycin. Also receiving dexamethasone and remdesivir. Blood cultures no growth so far. Currently on 3 L nasal cannula. Imaging personally reviewed: Chest x-ray: Diffuse bilateral pulmonary infiltrates. Review of systems: Deferred due to PPE conservation strategy. Past History Past Medical History: hypertension Past Surgical History: No surgical history Social history: no significant social history Family history: no significant family history Medications and Allergies Allergies Allergy/AdvReac Type Severity Reaction Status Date / Time No Known Allergies Allergy Verified 01/12/17 17:28 Home Medications Medication Instructions Recorded Confirmed Last Taken Type Dicyclomine [Bentyl] 10 mg PO QID #30 capsule 01/12/17 Unknown Rx raNITIdine HCl [Zantac 150 MG TAB] 150 mg PO BID #60 tablet 01/12/17 Unknown Rx Active Meds: Active Medications Acetaminophen (Acetaminophen 325 Mg Tab) 650 mg PO Q4H PRN PRN Reason: Pain MILD(1-3)/Fever >100.5/[place] Al Hydrox/Mg Hydrox/Simethicone (Alum-Mag Hydroxide-Simethicone [phone]/5ml Oral Liqd 30 Ml) 30 ml PO Q4H PRN PRN Reason: Indigestion Dexamethasone (Dexamethasone 4 Mg/Ml Vial) 8 mg IV DAILY SHELLY Enoxaparin Sodium (Enoxaparin 40 Mg/0.4 Ml Inj) 40 mg SUB-Q QDAY SHELLY; Protocol Last Admin: 09/19/20 11:19 Dose: 40 mg Documented by: Guaifenesin (Guaifenesin Dm 200/20 Mg Oral Liqd 10 Ml) 20 ml PO Q4H PRN PRN Reason: Cough Last Admin: 09/19/20 11:30 Dose: 20 ml Documented by: Hydralazine HCl (Hydralazine 20 Mg/1 Ml Inj) 5 mg IV Q4H PRN PRN Reason: Hypertension Azithromycin (Zithromax/Ns) 500 mg in 250 mls @ 250 mls/hr IV Q24HR SHELLY Last Admin: 09/19/20 11:19 Dose: 250 mls/hr Documented by: Sodium Chloride (Nacl 0.9% 1000 Ml) 1,000 mls @ 75 mls/hr IV DIRECT SHELLY Last Admin: 09/19/20 05:25 Dose: 75 mls/hr Documented by: Ceftriaxone Sodium (Rocephin/Ns 1 Gm/50 Ml) 1 gm in 50 mls @ 100 mls/hr IV Q24H SHELLY; Protocol Last Admin: 09/19/20 05:24 Dose: 100 mls/hr Documented by: REMDESIVIR 100 mg/ Sodium (Chloride) 250 mls @ 500 mls/hr IV Q24HR@2100 SHELLY Stop: 09/23/20 21:29 Magnesium Hydroxide (Magnesium Hydroxide (Mom) Oral Liqd Udc) 30 ml PO Q4H PRN PRN Reason: Constipation Metoclopramide HCl (Metoclopramide 10 Mg/2 Ml Inj) 10 mg IV Q6H PRN PRN Reason: Nausea And Vomiting Ondansetron HCl (Ondansetron 4 Mg/2 Ml Inj) 4 mg IV Q8H PRN PRN Reason: Nausea And Vomiting Senna (Sennosides 8.6 Mg Tab) 8.6 mg PO Q12HR PRN PRN Reason: Constipation Sodium Chloride (Sodium Chloride 0.9% 50 Ml Ivpb) 50 ml IV Q24HR@2100 SHELLY Stop: 09/23/20 21:01 Tramadol HCl (Tramadol 50 Mg Tab) 50 mg PO Q4H PRN PRN Reason: Pain, Moderate (4-6) Trazodone HCl (Trazodone 50 Mg Tab) 50 mg PO QHS PRN PRN Reason: Insomnia Physical Examination - Physical Exam Narrative exam: Physical exam deferred due to PPE conservation strategy. Please refer to primary team's note. - Constitutional Vitals: Vital Signs Temp Pulse Resp BP Pulse Ox 98.9 F 66 20 104/58 97 09/19/20 11:28 09/19/20 11:28 09/19/20 11:28 09/19/20 11:28 09/19/20 14:00 Temperature -Last 24 Hours Temperature 98.9 F Temperature 98.4 F Temperature 97.1 F Temperature 99.3 F Results - Labs CBC & Chem 7: 09/19/20 07:01 09/19/20 14:58 Labs: Abnormal lab results 09/19/20 09/19/20 09/19/20 Range/Units 07:01 07:01 07:01 Mcpherson % (Auto) 7.6 H (0.0-7.3) % Seg Neutrophils % 73.0 H (40.0-70.0) % D-Dimer 256.70 H (0-234) ng/mlDDU BUN 6 L (7-17) mg/dL Creatinine 0.5 L (0.6-1.2) mg/dL Glucose (65-100) mg/dL Calcium 8.3 L (8.4-10.2) mg/dL Lactate Dehydrogenase 435 H (91-180) units/L Albumin (3.9-5) g/dL 09/19/20 Range/Units 14:58 Mcpherson % (Auto) (0.0-7.3) % Seg Neutrophils % (40.0-70.0) % D-Dimer (0-234) ng/mlDDU BUN (7-17) mg/dL Creatinine (0.6-1.2) mg/dL Glucose 115 H (65-100) mg/dL Calcium 8.3 L (8.4-10.2) mg/dL Lactate Dehydrogenase (91-180) units/L Albumin 3.6 L (3.9-5) g/dL Assessment and Plan Cultures: Blood culture: no growth so far Covid PCR: Positive A/P: 29-year-old female past medical history morbid obesity, hypertension admitted with COVID-19 pneumonia. #Severe COVID-19 pneumonia: Patient presented with a week of symptoms, chest x- ray with diffuse bilateral infiltrates. Inflammatory markers normal. D-dimer mildly elevated. #Acute hypoxemic respiratory failure: Likely secondary to COVID-19 infection. Currently on 3 L nasal cannula. #Morbid obesity: Associated with worse COVID-19 outcomes. Recs: -Dexamethasone 6 mg IV/PO daily for 10 days -Remdesivir 200 mg IV q day x 1 followed by 100 mg IV q day x 4 days. D1 of 5. -Obtain q48-72h inflammatory markers - ferritin, Ddimer, CRP, LDH -Stop antibiotics of normal procalcitonin and white count. -Patient with minimal inflammation based on CRP/ferritin, not currently a candidate for Actemra. -Anticoagulation per hospital protocol -Proning as able Thank you for the consult, we will continue to follow. Dr. Ceballos taking over tomorrow G. Yessica Arnold MD [facility] O: [phone] F: [phone]
[2020-09-19] MEDS: SODIUM CHLORIDE 0.9% 50 ML IVPB IV SCH (21:20)
[2020-09-20] MEDS: cefTRIAXone/NS 1 GM/50 ML 1 GM/50 ML BAG IV SCH (05:19)
[2020-09-20] MEDS: guaiFENesin DM 200/20 MG ORAL LIQD 10 ML PO PRN ×2 (05:27→22:06)
[2020-09-20 08:25] LABS: Alanine Aminotransferase 13 units/L (7-56); Albumin 3.1 g/dL (3.9-5); Blood Urea Nitrogen 10 mg/dL (7-17); Calcium 8.1 mg/dL (8.4-10.2); Hemolysis Index 4
[2020-09-20 08:29] LABS: BUN/Creatinine Ratio 17
[2020-09-20] MEDS: ENOXAPARIN 40 MG/0.4 ML INJ SUB-Q SCH (09:28)
[2020-09-20] MEDS: DEXAMETHASONE 4 MG TAB PO SCH (09:30)
--- NOTE | 2020-09-20 09:47 | Progress Note ---
Assessment and Plan 29 y/o female, obese with acute respiratory failure secondary to COVID 19 pneumonia. 1. Lasix 20mg IV x1 today 2. Wean FiO2 for sats >88% 3. Prone as tolerated during the day and sleep prone at night 4. Steroids and Remdesivir 5. Guarded Prognosis Subjective Date of service: 09/20/20 Interval history: Stable on 2 liters. Objective Vital Signs - 12hr 09/19/20 09/19/20 09/19/20 22:00 23:03 23:06 Temperature 98.1 F Pulse Rate 72 Respiratory 20 Rate Blood Pressure Blood Pressure 109/68 [Right] O2 Sat by Pulse 84 98 Oximetry 09/20/20 09/20/20 02:00 06:20 Temperature 98.7 F Pulse Rate 60 Respiratory 20 Rate Blood Pressure 101/43 Blood Pressure [Right] O2 Sat by Pulse 95 97 Oximetry Constitutional: no acute distress, other (obese) Eyes: non-icteric ENT: oropharynx moist, other (crowede oropharynx) Ascultation: Bilateral: clear, rhonchi Cardiovascular: regular rate and rhythm Gastrointestinal: normoactive bowel sounds, soft, non-tender, other (obese) Extremities: no cyanosis, no edema, pink and warm Neurologic: normal mental status Psychiatric: mood appropriate CBC and BMP: 09/19/20 07:01 09/20/20 07:01 ABG, PT/INR, D-dimer: PT/INR, D-dimer D-Dimer 256.70 ng/mlDDU (0-234) H 09/19/20 07:01 Abnormal lab findings: Abnormal Labs 09/17/20 09/18/20 09/18/20 20:50 00:41 10:15 [place] % (Auto) Seg Neutrophils % D-Dimer Sodium 136 L Potassium BUN 5 L Creatinine Glucose Calcium Lactate Dehydrogenase 521 H C-Reactive Protein 3.50 H Total Protein Albumin 3.7 L Coronavirus (PCR) Positive A 09/19/20 09/19/20 09/19/20 07:01 07:01 07:01 [place] % (Auto) 7.6 H Seg Neutrophils % 73.0 H D-Dimer 256.70 H Sodium Potassium BUN 6 L Creatinine 0.5 L Glucose Calcium 8.3 L Lactate Dehydrogenase 435 H C-Reactive Protein Total Protein Albumin Coronavirus (PCR) 09/19/20 09/20/20 14:58 07:01 [place] % (Auto) Seg Neutrophils % D-Dimer Sodium Potassium 3.4 L BUN Creatinine Glucose 115 H Calcium 8.3 L 8.1 L Lactate Dehydrogenase C-Reactive Protein Total Protein 6.0 L Albumin 3.6 L 3.1 L Coronavirus (PCR)
[2020-09-20] MEDS ORDERED: dexAMETHasone 4 MG/ML VIAL IV SCH (10:00)
[2020-09-20] MEDS ORDERED: FUROSEMIDE 20 MG/2 ML INJ IV NR (10:00)
--- NOTE | 2020-09-20 11:47 | Progress Note ---
Assessment and Plan Assessment and plan: Patient is a 29-year-old female who presents emergency room with complaints of cough, fever, shortness of breath, difficulty breathing, body aches. Patient states her fever is high at home. Patient states she was tested on Sunday for COVID-19. And states that she got her test back this morning is positive. Patient states that her symptoms are worsening. Patient states that her symptoms are better with rest and worse with exertion and movement. Patient states that she has been taking Tylenol for her symptoms and has some relief. Patient denies chest pain. Patient states she has not had a COVID-19 vaccine. Patient states she has not been given any antibiotics lately. Ed work up shows WBC 4.7, hemoglobin 14.0, PLT 174, Sodium 136, potassium 4.0, Cr 0.7, LD 521, C reactive Protein 3.50, D-dimer 200.41 Patient seen at bedside in ED. Patient alert and oriented times 3. Patient in an oxygen at 5 liters. IMPRESSION: 1. Diffuse bilateral pulmonary infiltrates. 09/18: Check Oxygen level. Obtain Pulmonary eval as patient admitted on 5 LITERS of Oxygen. Cough medication added. Encourage prone positioning. 50 minutes counseling provided to the patient on weight loss. 09/19: Patient seen and examined remains on 5 L of oxygen still with cough. States unchanged from yesterday. Will start the patient on remdesivir due to hypoxia which is persistent at this time. Continue to monitor inflammatory markers. May discontinue antibiotics if procalcitonin is normal. ID consulted. 09/20: ID and pulmonary input noted. Discussed with pharmacist yesterday remdesivir not in stock. Continue steroid at this time. Incentive spirometer ordered continue proning. May try melatonin for insomnia. Prognosis remains guarded Plan discussed with the patient in detail (1) COVID-19 Current Visit: Yes Status: Acute Plan to address problem: Monitor inflammatory markers Oxygen supplement and systemic steroid ID consulted. We will start the antibiotic with azithromycin Encourage prone position and use of I-S Monitor ABG (2) Respiratory failure Current Visit: Yes Status: Acute Qualifiers: Chronicity: acute Respiratory failure complication: hypoxia Qualified Code(s): J96.01 - Acute respiratory failure with hypoxia Plan to address problem: Acute respiratory failure with hypoxia Patient is on oxygen per nasal cannula I will monitor ABG Patient is started on antibiotic (3) Pneumonia Current Visit: Yes Status: Acute Qualifiers: Pneumonia type: due to unspecified organism Laterality: bilateral Lung location: unspecified part of lung Qualified Code(s): J18.9 - Pneumonia, unspecified organism Plan to address problem: Checks x-ray shows bilateral lung infiltrate. Likely secondary to Covid virus Patient is on antibiotic Blood culture follow-up with results (4) Fever Current Visit: Yes Status: Acute Plan to address problem: Monitor vital signs Fever likely secondary to Covid infection Tylenol for fever (5) morbid obesity BMI of 40.7 [6] DVT prophylaxis Current Visit: Yes Status: Acute Plan to address problem: Subcutaneous Lovenox History Interval history: Patient seen and examined still with mild shortness of breath with exertion. Reports not having a good night sleep yesterday. Reports cough persists but no chest pain. Currently on 4 L of oxygen Hospitalist Physical - Physical exam Narrative exam: VITAL SIGNS: Reviewed. GENERAL: The patient appears normally developed, sitting up this morning. Mild distress, morbidly obese vital signs as documented. HEAD: No signs of head trauma. EYES: Pupils are equal. Extraocular motions intact. EARS: Hearing grossly intact. MOUTH: Oropharynx is normal. NECK: No adenopathy, no JVD. CHEST: Chest with diminished breath sounds bilaterally. No wheezes, rales, or rhonchi. CARDIAC: Regular rate and rhythm. S1 and S2, without murmurs, gallops, or rubs. VASCULAR: No Edema. Peripheral pulses normal and equal in all extremities. ABDOMEN: Soft, non tender and non distended. No rebound or guarding, and no masses palpated. Bowel Sounds normal. MUSCULOSKELETAL: Good range of motion of all major joints. Extremities without clubbing, cyanosis or edema. NEUROLOGIC EXAM: Alert and oriented x 3 No focal sensory or strength deficits. Speech normal. Follows commands. PSYCHIATRIC: Mood normal. SKIN: detail exam as documented in skin assessment - Constitutional Vitals: Temp Pulse Resp BP Pulse Ox 98.7 F 60 24 101/43 97 09/20/20 06:20 09/20/20 10:00 09/20/20 10:00 09/20/20 06:20 09/20/20 10:00 General appearance: Present: mild distress, obese Results - Labs CBC & Chem 7: 09/19/20 07:01 09/20/20 07:01 Labs: Laboratory Last Values WBC 6.9 K/mm3 (4.5-11.0) 09/19/20 07:01 RBC 4.36 M/mm3 (3.65-5.03) 09/19/20 07:01 Hgb 13.4 gm/dl (10.1-14.3) 09/19/20 07:01 Hct 39.8 % (30.3-42.9) 09/19/20 07:01 MCV 91 fl (79-97) 09/19/20 07:01 MCH 31 pg (28-32) 09/19/20 07:01 MCHC 34 % (30-34) 09/19/20 07:01 RDW 13.6 % (13.2-15.2) 09/19/20 07:01 Plt Count 220 K/mm3 (140-440) 09/19/20 07:01 Lymph % (Auto) 18.9 % (13.4-35.0) 09/19/20 07:01 Kinney % (Auto) 7.6 % (0.0-7.3) H 09/19/20 07:01 Eos % (Auto) 0.0 % (0.0-4.3) 09/19/20 07:01 Baso % (Auto) 0.5 % (0.0-1.8) 09/19/20 07:01 Lymph # (Auto) 1.3 K/mm3 (1.2-5.4) 09/19/20 07:01 Kinney # (Auto) 0.5 K/mm3 (0.0-0.8) 09/19/20 07:01 Eos # (Auto) 0.0 K/mm3 (0.0-0.4) 09/19/20 07:01 Baso # (Auto) 0.0 K/mm3 (0.0-0.1) 09/19/20 07:01 Add Manual Diff Complete 09/17/20 20:50 Total Counted 100 09/17/20 20:50 Seg Neutrophils % 73.0 % (40.0-70.0) H 09/19/20 07:01 Seg Neuts % (Manual) 51.0 % (40.0-70.0) 09/17/20 20:50 Band Neutrophils % 12.0 % 09/17/20 20:50 Lymphocytes % (Manual) 32.0 % (13.4-35.0) 09/17/20 20:50 Monocytes % (Manual) 4.0 % (0.0-7.3) 09/17/20 20:50 Basophils % (Manual) 1.0 % (0.0-1.8) 09/17/20 20:50 Nucleated RBC % Not Reportable 09/17/20 20:50 Seg Neutrophils # 5.0 K/mm3 (1.8-7.7) 09/19/20 07:01 Seg Neutrophils # Man 2.4 K/mm3 (1.8-7.7) 09/17/20 20:50 Band Neutrophils # 0.6 K/mm3 09/17/20 20:50 Lymphocytes # (Manual) 1.5 K/mm3 (1.2-5.4) 09/17/20 20:50 Abs React Lymphs (Man) 0.0 K/mm3 09/17/20 20:50 Monocytes # (Manual) 0.2 K/mm3 (0.0-0.8) 09/17/20 20:50 Eosinophils # (Manual) 0.0 K/mm3 (0.0-0.4) 09/17/20 20:50 Basophils # (Manual) 0.0 K/mm3 (0.0-0.1) 09/17/20 20:50 Metamyelocytes # 0.0 K/mm3 09/17/20 20:50 Myelocytes # 0.0 K/mm3 09/17/20 20:50 Promyelocytes # 0.0 K/mm3 09/17/20 20:50 Blast Cells # 0.0 K/mm3 09/17/20 20:50 WBC Morphology Not Reportable 09/17/20 20:50 Hypersegmented Neuts Not Reportable 09/17/20 20:50 Hyposegmented Neuts Not Reportable 09/17/20 20:50 Hypogranular Neuts Not Reportable 09/17/20 20:50 Smudge Cells Not Reportable 09/17/20 20:50 Toxic Granulation Not Reportable 09/17/20 20:50 Toxic Vacuolation Not Reportable 09/17/20 20:50 Dohle Bodies Not Reportable 09/17/20 20:50 Pelger-Huet Anomaly Not Reportable 09/17/20 20:50 Reed Rods Not Reportable 09/17/20 20:50 Platelet Estimate Consistent w auto 09/17/20 20:50 Clumped Platelets Not Reportable 09/17/20 20:50 Plt Clumps, EDTA Not Reportable 09/17/20 20:50 Large Platelets Rare 09/17/20 20:50 Giant Platelets Not Reportable 09/17/20 20:50 Platelet Satelliting Not Reportable 09/17/20 20:50 Plt Morphology Comment Not Reportable 09/17/20 20:50 RBC Morphology Not Reportable 09/17/20 20:50 Dimorphic RBCs Not Reportable 09/17/20 20:50 Polychromasia Not Reportable 09/17/20 20:50 Hypochromasia Not Reportable 09/17/20 20:50 Poikilocytosis Not Reportable 09/17/20 20:50 Anisocytosis Not Reportable 09/17/20 20:50 Microcytosis Not Reportable 09/17/20 20:50 Macrocytosis Not Reportable 09/17/20 20:50 Spherocytes Not Reportable 09/17/20 20:50 Pappenheimer Bodies Not Reportable 09/17/20 20:50 Sickle Cells Not Reportable 09/17/20 20:50 Target Cells Not Reportable 09/17/20 20:50 Tear Drop Cells Rare 09/17/20 20:50 Ovalocytes Rare 09/17/20 20:50 Helmet Cells Not Reportable 09/17/20 20:50 [place] Bodies Not Reportable 09/17/20 20:50 Orange Rings Not Reportable 09/17/20 20:50 Magdiel Cells Not Reportable 09/17/20 20:50 Bite Cells Not Reportable 09/17/20 20:50 Crenated Cell Not Reportable 09/17/20 20:50 Elliptocytes Not Reportable 09/17/20 20:50 Acanthocytes (Spur) Not Reportable 09/17/20 20:50 Rouleaux Not Reportable 09/17/20 20:50 Hemoglobin C Crystals Not Reportable 09/17/20 20:50 Schistocytes Not Reportable 09/17/20 20:50 Malaria parasites Not Reportable 09/17/20 20:50 Waylon Bodies Not Reportable 09/17/20 20:50 Hem Pathologist Commnt No 09/17/20 20:50 D-Dimer 256.70 ng/mlDDU (0-234) H 09/19/20 07:01 Sodium 139 mmol/L (137-145) 09/20/20 07:01 Potassium 3.4 mmol/L (3.6-5.0) L 09/20/20 07:01 Chloride 105.9 mmol/L (98-107) 09/20/20 07:01 Carbon Dioxide 27 mmol/L (22-30) 09/20/20 07:01 Anion Gap 10 mmol/L 09/20/20 07:01 BUN 10 mg/dL (7-17) 09/20/20 07:01 Creatinine 0.6 mg/dL (0.6-1.2) 09/20/20 07:01 Estimated GFR > 60 ml/min 09/20/20 07:01 BUN/Creatinine Ratio 17 % 09/20/20 07:01 Glucose 94 mg/dL (65-100) 09/20/20 07:01 Hemoglobin A1c 5.3 % (4-6) 09/18/20 05:53 Lactic Acid 0.70 mmol/L (0.7-2.0) 09/18/20 00:41 Calcium 8.1 mg/dL (8.4-10.2) L 09/20/20 07:01 Magnesium 2.10 mg/dL (1.7-2.3) 09/17/20 20:50 Ferritin 139.4 ng/mL (10.0-200.0) 09/19/20 07:01 Total Bilirubin 0.40 mg/dL (0.1-1.2) 09/20/20 07:01 AST 15 units/L (5-40) 09/20/20 07:01 ALT 13 units/L (7-56) 09/20/20 07:01 Alkaline Phosphatase 38 units/L (35-129) 09/20/20 07:01 Lactate Dehydrogenase 435 units/L (91-180) H 09/19/20 07:01 C-Reactive Protein 1.20 mg/dL (0.00-1.30) 09/19/20 07:01 Total Protein 6.0 g/dL (6.3-8.2) L 09/20/20 07:01 Albumin 3.1 g/dL (3.9-5) L 09/20/20 07:01 Albumin/Globulin Ratio 1.1 % 09/20/20 07:01 Procalcitonin 0.06 ng/mL (<0.15) 09/18/20 00:41 Coronavirus (PCR) Positive (Negative) A 09/18/20 10:15 Microbiology: Microbiology 09/18/20 00:41 Peripheral/Venous Blood Culture - Preliminary NO GROWTH AFTER 48 HOURS 09/18/20 00:27 Peripheral/Venous Blood Culture - Preliminary NO GROWTH AFTER 48 HOURS García/IV: Voiding Method Toilet Active Medications - Current Medications Current Medications: Generic Name Dose Route Start Last Admin Trade Name Freq PRN Reason Stop Dose Admin Acetaminophen 650 mg 09/17/20 23:55 Acetaminophen 325 Mg Tab PO Q4H PRN Pain MILD(1-3)/Fever >100.5/[place] Al Hydrox/Mg Hydrox/Simethicone 30 ml 09/17/20 23:55 Alum-Mag Hydroxide-Simethicone [id number]/5ml Oral Liqd 30 Ml PO Q4H PRN Indigestion Dexamethasone 6 mg 09/20/20 10:00 09/20/20 09:30 Dexamethasone 4 Mg Tab PO 09/28/20 10:01 6 mg DAILY SHELLY Administration Enoxaparin Sodium 40 mg 09/18/20 10:00 09/20/20 09:28 Enoxaparin 40 Mg/0.4 Ml Inj SUB-Q 40 mg QDAY SHELLY Administration Protocol Guaifenesin 20 ml 09/18/20 10:51 09/20/20 05:27 Guaifenesin Dm 200/20 Mg Oral Liqd 10 Ml PO 20 ml Q4H PRN Administration Cough Hydralazine HCl 5 mg 09/18/20 00:01 Hydralazine 20 Mg/1 Ml Inj IV Q4H PRN Hypertension REMDESIVIR 100 mg/ Sodium 250 mls @ 500 mls/hr 09/20/20 21:00 Chloride IV 09/23/20 21:29 Q24HR@2100 SHELLY Magnesium Hydroxide 30 ml 09/17/20 23:55 Magnesium Hydroxide (Mom) Oral Liqd Udc PO Q4H PRN Constipation Metoclopramide HCl 10 mg 09/17/20 23:55 Metoclopramide 10 Mg/2 Ml Inj IV Q6H PRN Nausea And Vomiting Ondansetron HCl 4 mg 09/17/20 23:55 09/20/20 05:27 Ondansetron 4 Mg/2 Ml Inj IV 4 mg Q8H PRN Administration Nausea And Vomiting Senna 8.6 mg 09/17/20 23:55 Sennosides 8.6 Mg Tab PO Q12HR PRN Constipation Sodium Chloride 50 ml 09/19/20 21:00 09/19/20 21:20 Sodium Chloride 0.9% 50 Ml Ivpb IV 09/23/20 21:01 50 ml Q24HR@2100 SHELLY Administration Tramadol HCl 50 mg 09/17/20 23:59 Tramadol 50 Mg Tab PO Q4H PRN Pain, Moderate (4-6) Trazodone HCl 50 mg 09/17/20 23:59 Trazodone 50 Mg Tab PO QHS PRN Insomnia
--- NOTE | 2020-09-20 13:39 | Progress Note ---
Assessment and Plan Cultures: Blood culture: no growth so far Covid PCR: Positive A/P: 29-year-old female past medical history morbid obesity, hypertension admitted with COVID-19 pneumonia. #Severe COVID-19 pneumonia: Patient presented with a week of symptoms, chest x- ray with diffuse bilateral infiltrates. Inflammatory markers normal. D-dimer mildly elevated. #Acute hypoxemic respiratory failure: Likely secondary to COVID-19 infection. Currently on 3 L nasal cannula. #Morbid obesity: Associated with worse COVID-19 outcomes. Recs: -Dexamethasone 6 mg IV/PO daily for 10 days -Remdesivir 200 mg IV q day x 1 followed by 100 mg IV q day x 4 days. D2 of 5. -Obtain q48-72h inflammatory markers - ferritin, Ddimer, CRP, LDH, repeat marke rs today -Anticoagulation per hospital protocol -Proning as able Rox Ceballos MD [facility] ([facility]) Office [phone] Subjective Date of service: 09/20/20 Principal diagnosis: COVID-19 Interval history: Patient feels some better remains with dyspnea on exertion and cough, no fever, no desaturations Objective - Exam Narrative Exam: Physical exam deferred to minimize COVID-19 transmission during pandemic. - Constitutional Vitals: Vital Signs Temp Pulse Resp BP Pulse Ox 98.2 F 58 L 18 105/67 99 09/20/20 11:47 09/20/20 11:47 09/20/20 11:47 09/20/20 11:47 09/20/20 11:47 Temperature -Last 24 Hours Temperature 98.2 F Temperature 98.7 F Temperature 98.1 F Temperature 99.4 F - Labs CBC & Chem 7: 09/19/20 07:01 09/20/20 07:01 Labs: Abnormal lab results 09/19/20 09/20/20 Range/Units 14:58 07:01 Potassium 3.4 L (3.6-5.0) mmol/L Glucose 115 H (65-100) mg/dL Calcium 8.3 L 8.1 L (8.4-10.2) mg/dL Total Protein 6.0 L (6.3-8.2) g/dL Albumin 3.6 L 3.1 L (3.9-5) g/dL
[2020-09-20] MEDS: SODIUM CHLORIDE 0.9% 50 ML IVPB IV SCH (22:00)
[2020-09-20] MEDS: REMDESIVIR 100 MG in SODIUM CHLORIDE 0.9% 250ML 250 ML IV SCH (22:00)
[2020-09-21 05:33] LABS: Alanine Aminotransferase 12 units/L (7-56); Albumin 3.1 g/dL (3.9-5); Blood Urea Nitrogen 7 mg/dL (7-17); Calcium 8.4 mg/dL (8.4-10.2); Hemolysis Index 9
[2020-09-21 05:36] LABS: BUN/Creatinine Ratio 12
--- NOTE | 2020-09-21 07:46 | Progress Note ---
Assessment and Plan Assessment and plan: -- COVID-19 positive on 09/18/2020 Current Visit: Yes Status: Acute Isolation contact and droplet monitor inflammatory markers On 2 L of nasal cannula oxygen Continue dexamethasone and remdesivir per protocol Empiric antibiotic DC'd as procalcitonin is normal Encourage prone position , ID following --Acute hypoxic espiratory failure Current Visit: Yes Status: Acute Requiring 2 L of supplemental oxygen Closely monitor, evaluate for home oxygen at discharge Pulmonary following --Pneumonia/diffuse pulmonary infiltrates Current Visit: Yes Status: Acute Checks x-ray shows bilateral lung infiltrate. Empiric antibiotics DC'd as procalcitonin is normal X-ray findings due to Covid pneumonia . --Fever due to COVID-19 Current Visit: Yes Status: Acute Supportive care, antipyretics --morbid obesity BMI of 40.7 Current Visit: Yes Status: Acute Patient needs weight reduction when medically stable Recommend outpatient bariatric surgical/medical weight reduction program When medically stable --DVT prophylaxis Current Visit: Yes Status: Acute . Subcutaneous Lovenox Brief history: Patient is a 29-year-old female was admitted through emergency room with complaints of cough, fever, shortness of breath, difficulty breathing, body aches. Patient was admitted as PUI and subsequently campbell PCR test was p ositive placed on isolation evaluated by ID started on dexamethasone and remdesivir patient is hypoxic requiring 2 L of supplemental oxygen via nasal cannula . 09/18: Check Oxygen level. Obtain Pulmonary eval as patient admitted on 5 LITERS of Oxygen. Cough medication added. Encourage prone positioning. 50 minutes counseling provided to the patient on weight loss. 09/19: Patient seen and examined remains on 5 L of oxygen still with cough. States unchanged from yesterday. Will start the patient on remdesivir due to hypoxia which is persistent at this time. Continue to monitor inflammatory markers. May discontinue antibiotics if procalcitonin is normal. ID consulted. 09/20: ID and pulmonary input noted. Discussed with pharmacist yesterday remdesivir not in stock. Continue steroid at this time. Incentive spirometer ordered continue proning. May try melatonin for insomnia. Prognosis remains guarded Plan discussed with the patient in detail 09/21; patient requires 2 L of nasal cannula oxygen, on remdesivir and dexamethasone, ID following, recommend prone position History Interval history: I have seen and examined the patient at the bedside this morning Patient's chart and medications reviewed I have followed strict isolation precautions, PPE protocols per COVID-19 guidelines throughout my interaction And evaluation of the patient in her room. Patient feels slightly better still requiring 2 L of nasal cannula oxygen Patient is anxious to go home Complains of mild shortness of breath and cough Vital signs reviewed Hospitalist Physical - Constitutional Vitals: Temp Pulse Resp BP Pulse Ox 98.3 F 51 L 20 122/85 98 09/21/20 05:55 09/21/20 05:55 09/21/20 05:55 09/21/20 05:55 09/21/20 05:55 General appearance: Present: mild distress, well-nourished, obese - EENT Eyes: Present: PERRL, EOM intact - Neck Neck: Present: supple, normal ROM - Respiratory Respiratory effort: normal Respiratory: bilateral: diminished, rhonchi, negative: rales, wheezing - Cardiovascular Rhythm: regular Heart Sounds: Present: S1 & S2 - Extremities Extremities: no ischemia, No edema - Abdominal General gastrointestinal: soft, non-tender, non-distended, normal bowel sounds - Integumentary Integumentary: Present: clear, warm - Psychiatric Psychiatric: appropriate mood/affect, cooperative - Neurologic Neurologic: CNII-XII intact, moves all extremities Results - Labs CBC & Chem 7: 09/19/20 07:01 09/21/20 04:58 Labs: Laboratory Last Values WBC 6.9 K/mm3 (4.5-11.0) 09/19/20 07:01 RBC 4.36 M/mm3 (3.65-5.03) 09/19/20 07:01 Hgb 13.4 gm/dl (10.1-14.3) 09/19/20 07:01 Hct 39.8 % (30.3-42.9) 09/19/20 07:01 MCV 91 fl (79-97) 09/19/20 07:01 MCH 31 pg (28-32) 09/19/20 07:01 MCHC 34 % (30-34) 09/19/20 07:01 RDW 13.6 % (13.2-15.2) 09/19/20 07:01 Plt Count 220 K/mm3 (140-440) 09/19/20 07:01 Lymph % (Auto) 18.9 % (13.4-35.0) 09/19/20 07:01 [place] % (Auto) 7.6 % (0.0-7.3) H 09/19/20 07:01 Eos % (Auto) 0.0 % (0.0-4.3) 09/19/20 07:01 Baso % (Auto) 0.5 % (0.0-1.8) 09/19/20 07:01 Lymph # (Auto) 1.3 K/mm3 (1.2-5.4) 09/19/20 07:01 [place] # (Auto) 0.5 K/mm3 (0.0-0.8) 09/19/20 07:01 Eos # (Auto) 0.0 K/mm3 (0.0-0.4) 09/19/20 07:01 Baso # (Auto) 0.0 K/mm3 (0.0-0.1) 09/19/20 07:01 Add Manual Diff Complete 09/17/20 20:50 Total Counted 100 09/17/20 20:50 Seg Neutrophils % 73.0 % (40.0-70.0) H 09/19/20 07:01 Seg Neuts % (Manual) 51.0 % (40.0-70.0) 09/17/20 20:50 Band Neutrophils % 12.0 % 09/17/20 20:50 Lymphocytes % (Manual) 32.0 % (13.4-35.0) 09/17/20 20:50 Monocytes % (Manual) 4.0 % (0.0-7.3) 09/17/20 20:50 Basophils % (Manual) 1.0 % (0.0-1.8) 09/17/20 20:50 Nucleated RBC % Not Reportable 09/17/20 20:50 Seg Neutrophils # 5.0 K/mm3 (1.8-7.7) 09/19/20 07:01 Seg Neutrophils # Man 2.4 K/mm3 (1.8-7.7) 09/17/20 20:50 Band Neutrophils # 0.6 K/mm3 09/17/20 20:50 Lymphocytes # (Manual) 1.5 K/mm3 (1.2-5.4) 09/17/20 20:50 Abs React Lymphs (Man) 0.0 K/mm3 09/17/20 20:50 Monocytes # (Manual) 0.2 K/mm3 (0.0-0.8) 09/17/20 20:50 Eosinophils # (Manual) 0.0 K/mm3 (0.0-0.4) 09/17/20 20:50 Basophils # (Manual) 0.0 K/mm3 (0.0-0.1) 09/17/20 20:50 Metamyelocytes # 0.0 K/mm3 09/17/20 20:50 Myelocytes # 0.0 K/mm3 09/17/20 20:50 Promyelocytes # 0.0 K/mm3 09/17/20 20:50 Blast Cells # 0.0 K/mm3 09/17/20 20:50 WBC Morphology Not Reportable 09/17/20 20:50 Hypersegmented Neuts Not Reportable 09/17/20 20:50 Hyposegmented Neuts Not Reportable 09/17/20 20:50 Hypogranular Neuts Not Reportable 09/17/20 20:50 Smudge Cells Not Reportable 09/17/20 20:50 Toxic Granulation Not Reportable 09/17/20 20:50 Toxic Vacuolation Not Reportable 09/17/20 20:50 Dohle Bodies Not Reportable 09/17/20 20:50 Pelger-Huet Anomaly Not Reportable 09/17/20 20:50 Reed Rods Not Reportable 09/17/20 20:50 Platelet Estimate Consistent w auto 09/17/20 20:50 Clumped Platelets Not Reportable 09/17/20 20:50 Plt Clumps, EDTA Not Reportable 09/17/20 20:50 Large Platelets Rare 09/17/20 20:50 Giant Platelets Not Reportable 09/17/20 20:50 Platelet Satelliting Not Reportable 09/17/20 20:50 Plt Morphology Comment Not Reportable 09/17/20 20:50 RBC Morphology Not Reportable 09/17/20 20:50 Dimorphic RBCs Not Reportable 09/17/20 20:50 Polychromasia Not Reportable 09/17/20 20:50 Hypochromasia Not Reportable 09/17/20 20:50 Poikilocytosis Not Reportable 09/17/20 20:50 Anisocytosis Not Reportable 09/17/20 20:50 Microcytosis Not Reportable 09/17/20 20:50 Macrocytosis Not Reportable 09/17/20 20:50 Spherocytes Not Reportable 09/17/20 20:50 Pappenheimer Bodies Not Reportable 09/17/20 20:50 Sickle Cells Not Reportable 09/17/20 20:50 Target Cells Not Reportable 09/17/20 20:50 Tear Drop Cells Rare 09/17/20 20:50 Ovalocytes Rare 09/17/20 20:50 Helmet Cells Not Reportable 09/17/20 20:50 [place] Bodies Not Reportable 09/17/20 20:50 [place] Rings Not Reportable 09/17/20 20:50 Magdiel Cells Not Reportable 09/17/20 20:50 Bite Cells Not Reportable 09/17/20 20:50 Crenated Cell Not Reportable 09/17/20 20:50 Elliptocytes Not Reportable 09/17/20 20:50 Acanthocytes (Spur) Not Reportable 09/17/20 20:50 Rouleaux Not Reportable 09/17/20 20:50 Hemoglobin C Crystals Not Reportable 09/17/20 20:50 Schistocytes Not Reportable 09/17/20 20:50 Malaria parasites Not Reportable 09/17/20 20:50 [place] Bodies Not Reportable 09/17/20 20:50 Hem Pathologist Commnt No 09/17/20 20:50 D-Dimer 209.56 ng/mlDDU (0-234) 09/21/20 04:58 Sodium 142 mmol/L (137-145) 09/21/20 04:58 Potassium 4.2 mmol/L (3.6-5.0) D 09/21/20 04:58 Chloride 105.9 mmol/L (98-107) 09/21/20 04:58 Carbon Dioxide 27 mmol/L (22-30) 09/21/20 04:58 Anion Gap 13 mmol/L 09/21/20 04:58 BUN 7 mg/dL (7-17) 09/21/20 04:58 Creatinine 0.6 mg/dL (0.6-1.2) 09/21/20 04:58 Estimated GFR > 60 ml/min 09/21/20 04:58 BUN/Creatinine Ratio 12 % 09/21/20 04:58 Glucose 117 mg/dL (65-100) H 09/21/20 04:58 Glucose 117 mg/dL (65-100) H 09/21/20 04:58 Hemoglobin A1c 5.3 % (4-6) 09/18/20 05:53 Lactic Acid 0.70 mmol/L (0.7-2.0) 09/18/20 00:41 Calcium 8.4 mg/dL (8.4-10.2) 09/21/20 04:58 Magnesium 2.10 mg/dL (1.7-2.3) 09/17/20 20:50 Ferritin 110.9 ng/mL (10.0-200.0) 09/21/20 04:58 Total Bilirubin 0.40 mg/dL (0.1-1.2) 09/21/20 04:58 AST 12 units/L (5-40) 09/21/20 04:58 ALT 12 units/L (7-56) 09/21/20 04:58 Alkaline Phosphatase 38 units/L (35-129) 09/21/20 04:58 Lactate Dehydrogenase 306 units/L (91-180) H 09/21/20 04:58 C-Reactive Protein 1.00 mg/dL (0.00-1.30) 09/21/20 04:58 Total Protein 6.3 g/dL (6.3-8.2) 09/21/20 04:58 Albumin 3.1 g/dL (3.9-5) L 09/21/20 04:58 Albumin/Globulin Ratio 1.0 % 09/21/20 04:58 Procalcitonin 0.06 ng/mL (<0.15) 09/18/20 00:41 Coronavirus (PCR) Positive (Negative) A 09/18/20 10:15 Microbiology: Microbiology 09/18/20 00:41 Peripheral/Venous Blood Culture - Preliminary NO GROWTH AFTER 72 HOURS 09/18/20 00:27 Peripheral/Venous Blood Culture - Preliminary NO GROWTH AFTER 72 HOURS García/IV: Voiding Method Toilet Active Medications - Current Medications Current Medications: Generic Name Dose Route Start Last Admin Trade Name Freq PRN Reason Stop Dose Admin Acetaminophen 650 mg 09/17/20 23:55 Acetaminophen 325 Mg Tab PO Q4H PRN Pain MILD(1-3)/Fever >100.5/[place] Al Hydrox/Mg Hydrox/Simethicone 30 ml 09/17/20 23:55 Alum-Mag Hydroxide-Simethicone [id number]/5ml Oral Liqd 30 Ml PO Q4H PRN Indigestion Dexamethasone 6 mg 09/20/20 10:00 09/20/20 09:30 Dexamethasone 4 Mg Tab PO 09/28/20 10:01 6 mg DAILY SHELLY Administration Enoxaparin Sodium 40 mg 09/18/20 10:00 09/20/20 09:28 Enoxaparin 40 Mg/0.4 Ml Inj SUB-Q 40 mg QDAY SHELLY Administration Protocol Guaifenesin 20 ml 09/18/20 10:51 09/20/20 22:06 Guaifenesin Dm 200/20 Mg Oral Liqd 10 Ml PO 20 ml Q4H PRN Administration Cough Hydralazine HCl 5 mg 09/18/20 00:01 Hydralazine 20 Mg/1 Ml Inj IV Q4H PRN Hypertension REMDESIVIR 100 mg/ Sodium 250 mls @ 500 mls/hr 09/20/20 21:00 09/20/20 22:00 Chloride IV 09/23/20 21:29 500 mls/hr Q24HR@2100 [facility] Administration Magnesium Hydroxide 30 ml 09/17/20 23:55 Magnesium Hydroxide (Mom) Oral Liqd Udc PO Q4H PRN Constipation Metoclopramide HCl 10 mg 09/17/20 23:55 Metoclopramide 10 Mg/2 Ml Inj IV Q6H PRN Nausea And Vomiting Ondansetron HCl 4 mg 09/17/20 23:55 09/20/20 05:27 Ondansetron 4 Mg/2 Ml Inj IV 4 mg Q8H PRN Administration Nausea And Vomiting Senna 8.6 mg 09/17/20 23:55 Sennosides 8.6 Mg Tab PO Q12HR PRN Constipation Sodium Chloride 50 ml 09/19/20 21:00 09/20/20 22:00 Sodium Chloride 0.9% 50 Ml Ivpb IV 09/23/20 21:01 50 ml Q24HR@2100 SHELLY Administration Tramadol HCl 50 mg 09/17/20 23:59 Tramadol 50 Mg Tab PO Q4H PRN Pain, Moderate (4-6) Trazodone HCl 50 mg 09/17/20 23:59 Trazodone 50 Mg Tab PO QHS PRN Insomnia
[2020-09-21] MEDS: DEXAMETHASONE 4 MG TAB PO SCH (09:28)
[2020-09-21] MEDS: ENOXAPARIN 40 MG/0.4 ML INJ SUB-Q SCH (09:29)
--- NOTE | 2020-09-21 10:12 | Progress Note ---
Assessment and Plan Cultures: Blood culture: no growth so far Covid PCR: Positive A/P: 29-year-old female past medical history morbid obesity, hypertension admitted with COVID-19 pneumonia. #Severe COVID-19 pneumonia: Patient presented with a week of symptoms, chest x- ray with diffuse bilateral infiltrates. Inflammatory markers normal. D-dimer mildly elevated. #Acute hypoxemic respiratory failure: Likely secondary to COVID-19 infection. Currently on 2 L nasal cannula. #Morbid obesity: Associated with worse COVID-19 outcomes. Recs: -Dexamethasone 6 mg IV/PO daily for 10 days -Remdesivir D3 of 5. -Obtain q48-72h inflammatory markers - ferritin, Ddimer, CRP, LDH, repeat markers today -Anticoagulation per hospital protocol -Proning as able -Obtain 6-minute walking test tomorrow MD Sar[facility] ([facility]) Office [phone] Subjective Date of service: 09/21/20 Principal diagnosis: COVID-19 Interval history: Remains on 2 L, no desaturations overnight, no fever Objective - Exam Narrative Exam: Physical exam deferred to minimize COVID-19 transmission during pandemic. - Constitutional Vitals: Vital Signs Temp Pulse Resp BP Pulse Ox 98.3 F 51 L 20 122/85 96 09/21/20 05:55 09/21/20 05:55 09/21/20 05:55 09/21/20 05:55 09/21/20 07:45 Temperature -Last 24 Hours Temperature 98.3 F Temperature 98.2 F Temperature 98.1 F Temperature 98.2 F - Labs CBC & Chem 7: 09/19/20 07:01 09/21/20 04:58 Labs: Abnormal lab results 09/21/20 09/21/20 Range/Units 04:58 04:58 Glucose 117 H 117 H (65-100) mg/dL Lactate Dehydrogenase 306 H (91-180) units/L Albumin 3.1 L (3.9-5) g/dL
--- NOTE | 2020-09-21 12:45 | Progress Note ---
Assessment and Plan 29 y/o female, obese with acute respiratory failure secondary to COVID 19 pneumonia. 09/21/20: lasix again today. Continue to wean as tolerated for sats> 88%. steroids remdesivir. reviewed ID note and agree with their assessment and plan. Patient however has no funding so will try to wean of oxygen if possible. 1. Lasix 20mg IV x1 today 2. Wean FiO2 for sats >88% 3. Prone as tolerated during the day and sleep prone at night 4. Steroids and Remdesivir 5. Guarded Prognosis Subjective Date of service: 09/21/20 Principal diagnosis: COVID-19 Interval history: Stable on 2 liters. Good sats. Objective Vital Signs - 12hr 09/21/20 09/21/20 09/21/20 05:55 07:45 10:00 Temperature 98.3 F Pulse Rate 51 L Respiratory 20 20 Rate Blood Pressure 122/85 O2 Sat by Pulse 98 96 Oximetry Constitutional: no acute distress, other (obese) Eyes: non-icteric ENT: oropharynx moist, other (crowede oropharynx) Ascultation: Bilateral: clear, rhonchi Cardiovascular: regular rate and rhythm Gastrointestinal: normoactive bowel sounds, soft, non-tender, other (obese) Extremities: no cyanosis, no edema, pink and warm Neurologic: normal mental status Psychiatric: mood appropriate CBC and BMP: 09/19/20 07:01 09/21/20 04:58 ABG, PT/INR, D-dimer: PT/INR, D-dimer D-Dimer 209.56 ng/mlDDU (0-234) 09/21/20 04:58 Abnormal lab findings: Abnormal Labs 09/17/20 09/18/20 09/18/20 20:50 00:41 10:15 [place] % (Auto) Seg Neutrophils % D-Dimer Sodium 136 L Potassium BUN 5 L Creatinine Glucose Calcium Lactate Dehydrogenase 521 H C-Reactive Protein 3.50 H Total Protein Albumin 3.7 L Coronavirus (PCR) Positive A 09/19/20 09/19/20 09/19/20 07:01 07:01 07:01 [place] % (Auto) 7.6 H Seg Neutrophils % 73.0 H D-Dimer 256.70 H Sodium Potassium BUN 6 L Creatinine 0.5 L Glucose Calcium 8.3 L Lactate Dehydrogenase 435 H C-Reactive Protein Total Protein Albumin Coronavirus (PCR) 09/19/20 09/20/20 09/21/20 14:58 07:01 04:58 [place] % (Auto) Seg Neutrophils % D-Dimer Sodium Potassium 3.4 L BUN Creatinine Glucose 115 H 117 H Calcium 8.3 L 8.1 L Lactate Dehydrogenase 306 H C-Reactive Protein Total Protein 6.0 L Albumin 3.6 L 3.1 L Coronavirus (PCR) 09/21/20 04:58 [place] % (Auto) Seg Neutrophils % D-Dimer Sodium Potassium BUN Creatinine Glucose 117 H Calcium Lactate Dehydrogenase C-Reactive Protein Total Protein Albumin 3.1 L Coronavirus (PCR)
[2020-09-21] MEDS: guaiFENesin DM 200/20 MG ORAL LIQD 10 ML PO PRN (18:16)
[2020-09-21] MEDS: REMDESIVIR 100 MG in SODIUM CHLORIDE 0.9% 250ML 250 ML IV SCH (21:28)
[2020-09-21] MEDS: SODIUM CHLORIDE 0.9% 50 ML IVPB IV SCH (21:29)
[2020-09-22] MEDS: guaiFENesin DM 200/20 MG ORAL LIQD 10 ML PO PRN (00:28)
[2020-09-22 06:43] VITALS: BP 112/70
[2020-09-22 09:08] LABS: Alanine Aminotransferase 23 units/L (7-56); Albumin 3.4 g/dL (3.9-5); Blood Urea Nitrogen 10 mg/dL (7-17); Calcium 8.7 mg/dL (8.4-10.2); Hemolysis Index 6
[2020-09-22 09:43] LABS: BUN/Creatinine Ratio 17
--- NOTE | 2020-09-22 10:00 | Progress Note ---
Assessment and Plan Assessment and plan: -- COVID-19 positive on 09/18/2020 Current Visit: Yes Status: Acute Isolation contact and droplet monitor inflammatory markers On 2 L of nasal cannula oxygen Continue dexamethasone and remdesivir per protocol Empiric antibiotic DC'd as procalcitonin is normal Encourage prone position , ID following --Acute hypoxic espiratory failure Current Visit: Yes Status: Acute Requiring 2 L of supplemental oxygen Closely monitor, evaluate for home oxygen at discharge Pulmonary following --Pneumonia/diffuse pulmonary infiltrates Current Visit: Yes Status: Acute Checks x-ray shows bilateral lung infiltrate. Empiric antibiotics DC'd as procalcitonin is normal X-ray findings due to Covid pneumonia . --Mild malnutrition/hypoalbuminemia Current Visit: Yes Status: Acute albumin 3.1,Nutrition supplements, supportive care, nutrition consult if needed --Fever due to COVID-19 Current Visit: Yes Status: Acute Supportive care, antipyretics --morbid obesity BMI of 40.7 Current Visit: Yes Status: Acute Patient needs weight reduction when medically stable Recommend outpatient bariatric surgical/medical weight reduction program When medically stable --DVT prophylaxis Current Visit: Yes Status: Acute . Subcutaneous Lovenox Brief history: Patient is a 29-year-old female was admitted through emergency room with complaints of cough, fever, shortness of breath, difficulty breathing, body aches. Patient was admitted as PUI and subsequently campbell PCR test was positive placed on isolation evaluated by ID started on dexamethasone and remdesivir patient is hypoxic requiring 2 L of supplemental oxygen via nasal cannula . 09/18: Check Oxygen level. Obtain Pulmonary eval as patient admitted on 5 LITERS of Oxygen. Cough medication added. Encourage prone positioning. 50 minutes counseling provided to the patient on weight loss. 09/19: Patient seen and examined remains on 5 L of oxygen still with cough. States unchanged from yesterday. Will start the patient on remdesivir due to hypoxia which is persistent at this time. Continue to monitor inflammatory markers. May discontinue antibiotics if procalcitonin is normal. ID consulted. 09/20: ID and pulmonary input noted. Discussed with pharmacist yesterday remdesivir not in stock. Continue steroid at this time. Incentive spirometer ordered continue proning. May try melatonin for insomnia. Prognosis remains guarded Plan discussed with the patient in detail 09/21; patient requires 2 L of nasal cannula oxygen, on remdesivir and dexamethasone, ID following, recommend prone position 09/22; patient is still requiring 2 L nasal cannula oxygen, continue COVID-19 management per protocol, ID pulmonary following History Interval history: I have seen and examined the patient at the bedside, patient's chart and medications reviewed. I have followed strict COVID-19 guidelines and implemented isolation precautions and PPE protocols. Patient feels slightly better, complains of mild shortness of breath, on 2 L oxygen Vital signs noted Hospitalist Physical - Constitutional Vitals: Temp Pulse Resp BP Pulse Ox 99.2 F 49 L 18 112/70 100 09/22/20 06:41 09/22/20 06:41 09/22/20 06:41 09/22/20 06:41 09/22/20 06:41 General appearance: Present: mild distress, well-nourished, obese - EENT Eyes: Present: PERRL, EOM intact - Neck Neck: Present: supple, normal ROM - Respiratory Respiratory effort: normal Respiratory: bilateral: diminished, negative: rales, rhonchi, wheezing - Cardiovascular Rhythm: regular Heart Sounds: Present: S1 & S2 - Extremities Extremities: no ischemia, No edema - Abdominal General gastrointestinal: soft, non-tender, normal bowel sounds - Integumentary Integumentary: Present: clear, warm - Psychiatric Psychiatric: appropriate mood/affect, cooperative - Neurologic Neurologic: CNII-XII intact, moves all extremities Results - Labs CBC & Chem 7: 09/19/20 07:01 09/22/20 07:36 Labs: Laboratory Last Values WBC 6.9 K/mm3 (4.5-11.0) 09/19/20 07:01 RBC 4.36 M/mm3 (3.65-5.03) 09/19/20 07:01 Hgb 13.4 gm/dl (10.1-14.3) 09/19/20 07:01 Hct 39.8 % (30.3-42.9) 09/19/20 07:01 MCV 91 fl (79-97) 09/19/20 07:01 MCH 31 pg (28-32) 09/19/20 07:01 MCHC 34 % (30-34) 09/19/20 07:01 RDW 13.6 % (13.2-15.2) 09/19/20 07:01 Plt Count 220 K/mm3 (140-440) 09/19/20 07:01 Lymph % (Auto) 18.9 % (13.4-35.0) 09/19/20 07:01 [place] % (Auto) 7.6 % (0.0-7.3) H 09/19/20 07:01 Eos % (Auto) 0.0 % (0.0-4.3) 09/19/20 07:01 Baso % (Auto) 0.5 % (0.0-1.8) 09/19/20 07:01 Lymph # (Auto) 1.3 K/mm3 (1.2-5.4) 09/19/20 07:01 [place] # (Auto) 0.5 K/mm3 (0.0-0.8) 09/19/20 07:01 Eos # (Auto) 0.0 K/mm3 (0.0-0.4) 09/19/20 07:01 Baso # (Auto) 0.0 K/mm3 (0.0-0.1) 09/19/20 07:01 Add Manual Diff Complete 09/17/20 20:50 Total Counted 100 09/17/20 20:50 Seg Neutrophils % 73.0 % (40.0-70.0) H 09/19/20 07:01 Seg Neuts % (Manual) 51.0 % (40.0-70.0) 09/17/20 20:50 Band Neutrophils % 12.0 % 09/17/20 20:50 Lymphocytes % (Manual) 32.0 % (13.4-35.0) 09/17/20 20:50 Monocytes % (Manual) 4.0 % (0.0-7.3) 09/17/20 20:50 Basophils % (Manual) 1.0 % (0.0-1.8) 09/17/20 20:50 Nucleated RBC % Not Reportable 09/17/20 20:50 Seg Neutrophils # 5.0 K/mm3 (1.8-7.7) 09/19/20 07:01 Seg Neutrophils # Man 2.4 K/mm3 (1.8-7.7) 09/17/20 20:50 Band Neutrophils # 0.6 K/mm3 09/17/20 20:50 Lymphocytes # (Manual) 1.5 K/mm3 (1.2-5.4) 09/17/20 20:50 Abs React Lymphs (Man) 0.0 K/mm3 09/17/20 20:50 Monocytes # (Manual) 0.2 K/mm3 (0.0-0.8) 09/17/20 20:50 Eosinophils # (Manual) 0.0 K/mm3 (0.0-0.4) 09/17/20 20:50 Basophils # (Manual) 0.0 K/mm3 (0.0-0.1) 09/17/20 20:50 Metamyelocytes # 0.0 K/mm3 09/17/20 20:50 Myelocytes # 0.0 K/mm3 09/17/20 20:50 Promyelocytes # 0.0 K/mm3 09/17/20 20:50 Blast Cells # 0.0 K/mm3 09/17/20 20:50 WBC Morphology Not Reportable 09/17/20 20:50 Hypersegmented Neuts Not Reportable 09/17/20 20:50 Hyposegmented Neuts Not Reportable 09/17/20 20:50 Hypogranular Neuts Not Reportable 09/17/20 20:50 Smudge Cells Not Reportable 09/17/20 20:50 Toxic Granulation Not Reportable 09/17/20 20:50 Toxic Vacuolation Not Reportable 09/17/20 20:50 Dohle Bodies Not Reportable 09/17/20 20:50 Pelger-Huet Anomaly Not Reportable 09/17/20 20:50 Reed Rods Not Reportable 09/17/20 20:50 Platelet Estimate Consistent w auto 09/17/20 20:50 Clumped Platelets Not Reportable 09/17/20 20:50 Plt Clumps, EDTA Not Reportable 09/17/20 20:50 Large Platelets Rare 09/17/20 20:50 Giant Platelets Not Reportable 09/17/20 20:50 Platelet Satelliting Not Reportable 09/17/20 20:50 Plt Morphology Comment Not Reportable 09/17/20 20:50 RBC Morphology Not Reportable 09/17/20 20:50 Dimorphic RBCs Not Reportable 09/17/20 20:50 Polychromasia Not Reportable 09/17/20 20:50 Hypochromasia Not Reportable 09/17/20 20:50 Poikilocytosis Not Reportable 09/17/20 20:50 Anisocytosis Not Reportable 09/17/20 20:50 Microcytosis Not Reportable 09/17/20 20:50 Macrocytosis Not Reportable 09/17/20 20:50 Spherocytes Not Reportable 09/17/20 20:50 Pappenheimer Bodies Not Reportable 09/17/20 20:50 Sickle Cells Not Reportable 09/17/20 20:50 Target Cells Not Reportable 09/17/20 20:50 Tear Drop Cells Rare 09/17/20 20:50 Ovalocytes Rare 09/17/20 20:50 Helmet Cells Not Reportable 09/17/20 20:50 [place] Bodies Not Reportable 09/17/20 20:50 [place] Rings Not Reportable 09/17/20 20:50 Magdiel Cells Not Reportable 09/17/20 20:50 Bite Cells Not Reportable 09/17/20 20:50 Crenated Cell Not Reportable 09/17/20 20:50 Elliptocytes Not Reportable 09/17/20 20:50 Acanthocytes (Spur) Not Reportable 09/17/20 20:50 Rouleaux Not Reportable 09/17/20 20:50 Hemoglobin C Crystals Not Reportable 09/17/20 20:50 Schistocytes Not Reportable 09/17/20 20:50 Malaria parasites Not Reportable 09/17/20 20:50 [place] Bodies Not Reportable 09/17/20 20:50 Hem Pathologist Commnt No 09/17/20 20:50 D-Dimer 209.56 ng/mlDDU (0-234) 09/21/20 04:58 Sodium 141 mmol/L (137-145) 09/22/20 07:36 Potassium 3.9 mmol/L (3.6-5.0) 09/22/20 07:36 Chloride 103.7 mmol/L (98-107) 09/22/20 07:36 Carbon Dioxide 32 mmol/L (22-30) H 09/22/20 07:36 Anion Gap 9 mmol/L 09/22/20 07:36 BUN 10 mg/dL (7-17) 09/22/20 07:36 Creatinine 0.6 mg/dL (0.6-1.2) 09/22/20 07:36 Estimated GFR > 60 ml/min 09/22/20 07:36 BUN/Creatinine Ratio 17 % 09/22/20 07:36 Glucose 84 mg/dL (65-100) 09/22/20 07:36 Hemoglobin A1c 5.3 % (4-6) 09/18/20 05:53 Lactic Acid 0.70 mmol/L (0.7-2.0) 09/18/20 00:41 Calcium 8.7 mg/dL (8.4-10.2) 09/22/20 07:36 Magnesium 2.10 mg/dL (1.7-2.3) 09/17/20 20:50 Ferritin 110.9 ng/mL (10.0-200.0) 09/21/20 04:58 Total Bilirubin 0.50 mg/dL (0.1-1.2) 09/22/20 07:36 AST 21 units/L (5-40) 09/22/20 07:36 ALT 23 units/L (7-56) 09/22/20 07:36 Alkaline Phosphatase 39 units/L (35-129) 09/22/20 07:36 Lactate Dehydrogenase 306 units/L (91-180) H 09/21/20 04:58 C-Reactive Protein 1.00 mg/dL (0.00-1.30) 09/21/20 04:58 Total Protein 6.5 g/dL (6.3-8.2) 09/22/20 07:36 Albumin 3.4 g/dL (3.9-5) L 09/22/20 07:36 Albumin/Globulin Ratio 1.1 % 09/22/20 07:36 Procalcitonin 0.06 ng/mL (<0.15) 09/18/20 00:41 Coronavirus (PCR) Positive (Negative) A 09/18/20 10:15 Microbiology: Microbiology 09/18/20 00:41 Peripheral/Venous Blood Culture - Preliminary NO GROWTH AFTER 4 DAYS 09/18/20 00:27 Peripheral/Venous Blood Culture - Preliminary NO GROWTH AFTER 4 DAYS García/IV: Voiding Method Toilet Active Medications - Current Medications Current Medications: Generic Name Dose Route Start Last Admin Trade Name Freq PRN Reason Stop Dose Admin Acetaminophen 650 mg 09/17/20 23:55 Acetaminophen 325 Mg Tab PO Q4H PRN Pain MILD(1-3)/Fever >100.5/[place] Al Hydrox/Mg Hydrox/Simethicone 30 ml 09/17/20 23:55 Alum-Mag Hydroxide-Simethicone [id number]/5ml Oral Liqd 30 Ml PO Q4H PRN Indigestion Dexamethasone 6 mg 09/20/20 10:00 09/21/20 09:28 Dexamethasone 4 Mg Tab PO 09/28/20 10:01 6 mg DAILY SHELLY Administration Enoxaparin Sodium 40 mg 09/18/20 10:00 09/21/20 09:29 Enoxaparin 40 Mg/0.4 Ml Inj SUB-Q 40 mg QDAY SHELLY Administration Protocol Guaifenesin 20 ml 09/18/20 10:51 09/22/20 00:28 Guaifenesin Dm 200/20 Mg Oral Liqd 10 Ml PO 20 ml Q4H PRN Administration Cough Hydralazine HCl 5 mg 09/18/20 00:01 Hydralazine 20 Mg/1 Ml Inj IV Q4H PRN Hypertension REMDESIVIR 100 mg/ Sodium 250 mls @ 500 mls/hr 09/20/20 21:00 09/21/20 21:28 Chloride IV 09/23/20 21:29 500 mls/hr Q24HR@2100 SHELLY Administration Magnesium Hydroxide 30 ml 09/17/20 23:55 Magnesium Hydroxide (Mom) Oral Liqd Udc PO Q4H PRN Constipation Metoclopramide HCl 10 mg 09/17/20 23:55 Metoclopramide 10 Mg/2 Ml Inj IV Q6H PRN Nausea And Vomiting Ondansetron HCl 4 mg 09/17/20 23:55 09/20/20 05:27 Ondansetron 4 Mg/2 Ml Inj IV 4 mg Q8H PRN Administration Nausea And Vomiting Senna 8.6 mg 09/17/20 23:55 Sennosides 8.6 Mg Tab PO Q12HR PRN Constipation Sodium Chloride 50 ml 09/19/20 21:00 09/21/20 21:29 Sodium Chloride 0.9% 50 Ml Ivpb IV 09/23/20 21:01 50 ml Q24HR@2100 SHELLY Administration Tramadol HCl 50 mg 09/17/20 23:59 Tramadol 50 Mg Tab PO Q4H PRN Pain, Moderate (4-6) Trazodone HCl 50 mg 09/17/20 23:59 Trazodone 50 Mg Tab PO QHS PRN Insomnia
[2020-09-22] MEDS: ENOXAPARIN 40 MG/0.4 ML INJ SUB-Q SCH (11:29)
[2020-09-22] MEDS: DEXAMETHASONE 4 MG TAB PO SCH (11:30)
--- NOTE | 2020-09-22 13:37 | Progress Note ---
Assessment and Plan Cultures: Blood culture: no growth so far Covid PCR: Positive A/P: 29-year-old female past medical history morbid obesity, hypertension admitted with COVID-19 pneumonia. #Severe COVID-19 pneumonia: Patient presented with a week of symptoms, chest x- ray with diffuse bilateral infiltrates. Inflammatory markers normal. D-dimer mildly elevated. #Acute hypoxemic respiratory failure: Likely secondary to COVID-19 infection. Currently on room air. #Morbid obesity: Associated with worse COVID-19 outcomes. Recs: -Obtain 6-minute walking test if patient passes okay to discharge home, no need to complete 5 days of remdesivir if she passes the walking test -Continue dexamethasone 6 mg IV/PO daily for 10 days -Remdesivir D4 of 5. -Obtain q48-72h inflammatory markers - ferritin, Ddimer, CRP, LDH -Anticoagulation per hospital protocol Discussed with patient over the phone, discussed with attending MD Bob [facility] ([facility]) Office [phone] Subjective Date of service: 09/22/20 Principal diagnosis: COVID-19 Interval history: Patient has been off oxygen since 10 in the morning, feels okay, no dyspnea on exertion, no desaturations reported Objective - Exam Narrative Exam: Physical exam deferred to minimize COVID-19 transmission during pandemic. - Constitutional Vitals: Vital Signs Temp Pulse Resp BP Pulse Ox 99.2 F 49 L 18 112/70 98 09/22/20 06:41 09/22/20 06:41 09/22/20 06:41 09/22/20 06:41 09/22/20 10:00 Temperature -Last 24 Hours Temperature 99.2 F Temperature 98.5 F Temperature 99.1 F - Labs CBC & Chem 7: 09/19/20 07:01 09/22/20 07:36 Labs: Abnormal lab results 09/22/20 Range/Units 07:36 Carbon Dioxide 32 H (22-30) mmol/L Albumin 3.4 L (3.9-5) g/dL
--- NOTE | 2020-09-22 14:20 | Progress Note ---
Assessment and Plan 29 y/o female, obese with acute respiratory failure secondary to COVID 19 pneumonia. 09/22/20: No objection to discharge pulmonary esquivel. 09/21/20: lasix again today. Continue to wean as tolerated for sats> 88%. steroids remdesivir. reviewed ID note and agree with their assessment and plan. Patient however has no funding so will try to wean of oxygen if possible. 1. Lasix 20mg IV x1 today 2. Wean FiO2 for sats >88% 3. Prone as tolerated during the day and sleep prone at night 4. Steroids and Remdesivir 5. Guarded Prognosis Subjective Date of service: 09/22/20 Principal diagnosis: COVID-19 Interval history: Weaned to room air. Good sats. Walk tested yesterday and does not need oxygen. Objective Vital Signs - 12hr 09/22/20 09/22/20 06:41 10:00 Temperature 99.2 F Pulse Rate 49 L Respiratory 18 Rate Blood Pressure 112/70 O2 Sat by Pulse 100 98 Oximetry Constitutional: no acute distress, other (obese) Eyes: non-icteric ENT: oropharynx moist, other (crowede oropharynx) Ascultation: Bilateral: clear, rhonchi Cardiovascular: regular rate and rhythm Gastrointestinal: normoactive bowel sounds, soft, non-tender, other (obese) Extremities: no cyanosis, no edema, pink and warm Neurologic: normal mental status Psychiatric: mood appropriate CBC and BMP: 09/19/20 07:01 09/22/20 07:36 ABG, PT/INR, D-dimer: PT/INR, D-dimer D-Dimer 209.56 ng/mlDDU (0-234) 09/21/20 04:58 Abnormal lab findings: Abnormal Labs 09/17/20 09/18/20 09/18/20 20:50 00:41 10:15 [place] % (Auto) Seg Neutrophils % D-Dimer Sodium 136 L Potassium Carbon Dioxide BUN 5 L Creatinine Glucose Calcium Lactate Dehydrogenase 521 H C-Reactive Protein 3.50 H Total Protein Albumin 3.7 L Coronavirus (PCR) Positive A 09/19/20 09/19/20 09/19/20 07:01 07:01 07:01 [place] % (Auto) 7.6 H Seg Neutrophils % 73.0 H D-Dimer 256.70 H Sodium Potassium Carbon Dioxide BUN 6 L Creatinine 0.5 L Glucose Calcium 8.3 L Lactate Dehydrogenase 435 H C-Reactive Protein Total Protein Albumin Coronavirus (PCR) 09/19/20 09/20/20 09/21/20 14:58 07:01 04:58 [place] % (Auto) Seg Neutrophils % D-Dimer Sodium Potassium 3.4 L Carbon Dioxide BUN Creatinine Glucose 115 H 117 H Calcium 8.3 L 8.1 L Lactate Dehydrogenase 306 H C-Reactive Protein Total Protein 6.0 L Albumin 3.6 L 3.1 L Coronavirus (PCR) 09/21/20 09/22/20 04:58 07:36 [place] % (Auto) Seg Neutrophils % D-Dimer Sodium Potassium Carbon Dioxide 32 H BUN Creatinine Glucose 117 H Calcium Lactate Dehydrogenase C-Reactive Protein Total Protein Albumin 3.1 L 3.4 L Coronavirus (PCR)
--- NOTE | 2020-09-22 17:20 | Discharge Summary ---
Providers - Providers Date of Admission: 09/17/20 23:38 Date of discharge: 09/22/20 Attending physician: RUBEN WALEKR 09/17/20 23:27 Consult to Physician [CONS] Routine Comment: Consulting Provider: TR TRAN Physician Instructions: Reason For Exam: covid 09/18/20 07:33 Consult to Physician [CONS] Routine Comment: Consulting Provider: MATT GUTIERREZ Physician Instructions: Reason For Exam: hypoxia secondary to covid pneumonia [facility] Condition: Critical Disposition: DC-01 TO HOME OR SELFCARE Time spent for discharge: 35 min Exam - Constitutional Vitals: Temp Pulse Resp BP Pulse Ox 99.2 F 49 L 18 112/70 98 09/22/20 06:41 09/22/20 06:41 09/22/20 06:41 09/22/20 06:41 09/22/20 10:00 Plan Activity: advance as tolerated Diet: regular Additional Instructions: Advised the patient to strictly follow COVID-19 self quarantine, facemask, social distancing, contact isolation and other precautions and protocols explained to you by the discharge nurse. If you have worsening symptoms contact MD or go to the emergency room Follow up with: JYOTI VANCEBEDMINSTER MD EULA [Primary Care Provider] - 3-5 Days CECILE ALLEN MD [Staff Physician] - 14 Days
== END 2020-09-22 21:00 | disposition home or self-care (01) | DRG 177 ==
LOC: ED 19:44 → OBSVTOIN 23:38 → 3A 23:38
PROVIDERS: ADMIT Internal Medicine Geriatric Medicine; ATTEND Internal Medicine
PROC: XW033E5 Introduction of Remdesivir Anti-infective into Peripheral Vein, Percutaneous Approach, New Technology Group 5 (ICD-10-PCS; principal; 2020-09-19)
DX: U07.1 COVID-19 (principal); J96.01 Acute respiratory failure with hypoxia; J12.82 Pneumonia due to coronavirus disease 2019; Z68.41 Body mass index [BMI] 40.0-44.9, adult; E44.1 Mild protein-calorie malnutrition; I10 Essential (primary) hypertension; E66.01 Morbid (severe) obesity due to excess calories
CPT/HCPCS: 36415; 71046; 80048; 80053; 82140; 82728; 82947; 83036; 83615; 83735; 84145; 84146; 85007; 85025; 85379; 86140; 87040; 96374; 96375; G0378; J0456; J0696; J1100; J1650; J1940; J2405; J7030; J8540; U0003